=== PATIENT | female | born 1950 | race Caucasian/White ===

== ENCOUNTER 2022-09-21 17:12 | Inpatient (IN) ==
[2022-09-21] MEDS ORDERED: fentaNYL citrate PF 100 MCG/2 ML VIAL IV STA ×2 (17:35→18:06)
[2022-09-21] MEDS ORDERED: SODIUM CHLORIDE 0.9% 1000ML 1,000 ML IV ONE ×2 (17:36→19:05)
[2022-09-21 18:09] LABS: Basophils # (auto) 0.05 K/uL (0-0.2); Basophils % (auto) 0.5 %; Eosinophils # (auto) 0.15 K/uL (0-0.50); Eosinophils % (auto) 1.4 %; Hematocrit (blood only) 44.5 % (37.0-47.0); Hemoglobin 14.9 g/dl (12.0-16.0); Immature Granulocytes # (auto) 0.05 K/uL (0.01-0.20); Immature Granulocytes % (auto) 0.5 %; Lymphocytes # (auto) 2.64 K/uL (1.2-3.4); Lymphocytes % (auto) 25.2 %; Mean Corpuscular Hemoglobin 27.6 pg (25.0-34.0); Mean Corpuscular Hgb Conc 33.5 g/dL (32.0-36.0); Mean Corpuscular Volume 82.6 fL (80.0-100.0); Mean Platelet Volume 9.7 fL (9.4-12.4); Monocytes # (auto) 0.57 K/uL (0.11-0.59); Monocytes % (auto) 5.4 %; Neutrophils # (auto) 7.02 K/uL (1.40-6.50); Platelet Count 258 K/uL (130-400); RDW Coefficient of Variation 14.6 % (11.5-14.5); RDW Standard Deviation 44.3 fL (36.4-46.3); Red Blood Count 5.39 M/uL (4.20-5.40); White Blood Count 10.48 K/ul (4.8-10.8)
[2022-09-21 18:20] LABS: Albumin Globulin Ratio 1.3 (0.9-2); Albumin Level 4.1 gm/dl (3.4-5.0); BUN Creatinine Ratio 22.2 (10-20); Bilirubin,Total 0.4 mg/dl (0.2-1.0); Calcium 9.5 mg/dl (8.6-10.3); Creatinine Clr Calc Pharmacy 82.2 ml/min; Est GFR (African American) 74.6 ml/min; Est GFR (Non-African American) 64.3 ml/min; Globulin 3.1 gm/dl (2.5-4.0); Potassium 3.8 mmol/L (3.5-5.1); Total Protein 7.2 gm/dl (6.0-8.3)
[2022-09-21 18:36] LABS: INR 0.9 (0.9-1.1); Partial Thromboplastin Ratio 0.9; Partial Thromboplastin Time 24.5 Seconds (21.0-31.0); Prothrombin Time 10.3 Seconds (9.0-12.0)
--- NOTE | 2022-09-21 18:47 | Emergency Department Note ---
Impression & Plan Closed fracture of left distal femur, Fall ED Provider Note Provider: Lloyd Howard MD DATE OF SERVICE: 09/21/2022 CHIEF COMPLAINT: Fall, knee pain HISTORY OF PRESENT ILLNESS: Patient is a 72-year-old female history of prediabetes and fibromyalgia presenting here today via ambulance after a fall. Was at home and her daughter fell behind her and the patient was standing and fell onto the back of her. Patient states she fell down onto both of her knees. Reports she had bilateral knee replacements in the past more than a decade ago. States he is having significant pain in the left knee and some pain of the right knee. Denies significant pain in the foot or hip region or elsewhere on the upper extremities or chest. Patient denies striking her head. No use of significant anticoagulants or aspirin reported. Patient does relate she has sensitivity to multiple pain medications. Has been unable to walk since the incident. May be some slight numbness of the left toe but feels gross touch and denies other numbness or tingling. PAST MEDICAL HISTORY: As noted above MEDICATIONS: Reviewed home medication SOCIAL HISTORY: As PHYSICAL EXAM: GENERAL: alert and oriented in supine on stretcher tearful with son at bedside Head: normocephalic and atraumatic EYES: No injection, purulent discharge or icterus. PERRL, EOMI. NECK: Trachea midline. Supple no significant midline cervical tenderness ENT: Mucous membranes pink and moist. LUNGS: Airway patent. No retractions. Breath sounds clear with good air entry bilaterally. HEART: Regular rate and rhythm. No chest wall tenderness ABDOMEN: Soft and non-tender, without guarding or rebound. Stable pelvis SKIN: Acyanotic, warm, dry, without rashes EXTREMITIES: Without swelling, tenderness or deformity of the upper extremities however the lower extremities have significant pain surrounding both knees. The left appears swollen with some contusion just proximal to the knee. No open wounds noted. No significant tenderness of the bilateral lower legs ankles or feet. Feels gross sensation in the feet and toes. NEUROLOGICAL: No aphasia. No facial droop or slurred speech. Normal strength and tone in the extremities. Sensation to gross touch normal. EK bpm sinus rhythm with PAC. No PVC. No acute ST segment elevation or depression with a QTc of 504. Left axis noted. CONTINUOUS CARDIAC MONITORING: was ordered and showed a heart rate of 60s-80s bpm in normal sinus rhythm occasional PACs PDMP was checked without noted issue. Patient's laboratory studies and imaging reviewed. Differential includes Fracture, dislocation, contusion, intra-abdominal, pneumothorax, intrathoracic, intracranial, neurologic, compartment syndrome, rhabdomyolysis, as well as other pathologies. IMPRESSION/MEDICAL DECISION MAKING: Patient presents after a ground-level fall onto the knees bilateral placements in the past. Swelling particularly proximal to the left knee concerning for possible femur fracture. X-rays obtained bilaterally here. No significant strike her head or on her's medications and I doubt a head neck or thoracic abdominal injury. Nexus criteria negative doubt cervical spine injury. Trialed small doses of fentanyl given her sensitivities to narcotics in the past for pain control. No evidence of open wound. Neurologically in tact with good distal capillary refill of the lower extremities. Basic blood work obtained without significant anemia or leukocytosis. Normal INR. Again not on anticoagulants. No significant renal dysfunction or evidence of electrolyte abnormality. 1 view chest x-ray without acute abnormality such as pneumothorax or pulmonary edema per my interpretation Right knee and right femur x-ray per my interpretation no evidence of obvious fracture dislocation with knee arthroplasty in place. Left femur x-ray per my interpretation evidence of a distal femur fracture comminuted just proximal to the knee arthroplasty with posterior displacement of the replacement Patient tolerated first dose of fentanyl well. Given second dose issues along significant pain and developed some episodes of hypotension. Given IV fluid boluses. Doubt significant hemorrhagic shock at this time. Hemoglobin reassuring. Discussed with orthopedics findings. Patient shaky and endorses feeling unwell and still having significant knee pain. Left thigh bruising and contusion no clear skin tenting and no open wound at this time of the left femur/ thigh. Discussed with orthopedic surgery. Given some Toradol and acetaminophen to try to help with her pain. In discussion with them they felt they could likely repair this. We will need to work on pain control. We will t ry some traction to see if this helps with her discomfort discussed with the hospitalist additional strategies as well as possibly trying muscle relaxers to help with spasm component. Updated patient and family at bedside. Hospitalist in agreement with this plan will bring into the hospital at this time for orthopedic care and evaluation DIAGNOSIS: Fall, left femur fracture DISPOSITION: Hospitalist will evaluate Patient was agreeable with this plan. Past Med/Surg History Family History (Updated 09/21/22 @ 21:01 by Kishore Espitia MD) Grandmother (Maternal) Breast cancer Aunt Ovarian cancer Mother Deep vein thrombosis Diabetes Father Leukemia Son Brain tumor Grandfather (Paternal) Myocardial infarction Daughter Multiple sclerosis Social History Smoking Status: Never smoker Hx Alcohol Use: No Hx Substance Use: No Preferred Language: Egyptian Required: No Beliefs That Will Affect Care: None Current Living Situation: Spouse Current Living Situation Comment: Lives at home with Other Information That Helps Us Care for You: No Feels Safe at Home: Yes Safety Concerns: Feels Safe At This Time Allergies Allergies Allergy/AdvReac Type Severity Reaction Status Date / Time hydrocodone Allergy Severe HYPOTENSION Verified 09/21/22 18:21 /SHOCK oxycodone Allergy Severe HYPOTENSION Verified 09/21/22 18:21 /SHOCK Sulfa (Sulfonamide Allergy Severe HIVES IN Verified 09/21/22 18:21 Antibiotics) THROAT, EDEMA OF AIRWAY. adhesive tape Allergy Intermediate SKIN Verified 09/21/22 18:21 TEARS/REDDENED tetanus toxoid, adsorbed Allergy Intermediate RASH/FEVER Verified 09/21/22 18:21 tramadol AdvReac Severe BP DROPPED Verified 09/21/22 18:22 SEVERELY Home Meds Home Medications Medication Instructions Recorded Confirmed albuterol sulfate 90 mcg/actuation 2 puff inhalation Q4H PRN Wheezing 09/21/22 09/21/22 aerosol inhaler amitriptyline 50 mg tablet 50 mg PO HS 09/21/22 09/21/22 budesonide 1 mg/2 mL suspension 1 mg inhalation DAILY PRN 09/21/22 09/21/22 for nebulization (Pulmicort) NEEDED RESPIRATORY ILLNESS calcium carbonate 500 mg-vitamin 1 tab PO DAILY 09/21/22 09/21/22 D3 3.125 mcg (125 unit) tablet cyanocobalamin (vitamin B-12) 1,000 mcg PO DAILY 09/21/22 09/21/22 1,000 mcg tablet (Vitamin B-12) duloxetine 60 mg capsule,delayed 60 mg PO DAILY 09/21/22 09/21/22 release famotidine 20 mg tablet 20 mg PO HS 09/21/22 09/21/22 fluticasone propionate 110 2 puff inhalation BID 09/21/22 09/21/22 mcg/actuation HFA aerosol inhaler (Flovent HFA) fluticasone propionate 50 2 spray intranasal DAILY PRN 09/21/22 09/21/22 mcg/actuation nasal Congestion spray,suspension hydrocortisone 2.5 % topical 1 applic topical DIRECTED PRN 09/21/22 09/21/22 ointment NEEDED magnesium citrate 100 mg capsule 100 mg PO QAM 09/21/22 09/21/22 multivitamin with minerals 1 tab PO DAILY 09/21/22 09/21/22 omeprazole 40 mg capsule,delayed 40 mg PO QAM 09/21/22 09/21/22 release potassium citrate 99 mg capsule 99 mg PO QAM 09/21/22 09/21/22 semaglutide 0.25 mg or 0.5 mg (2 0.5 mg subcut WK 09/21/22 09/21/22 mg/3 mL) subcutaneous pen injector (Variab.[email or web address]) valacyclovir 1 gram tablet 1,000 mg PO Q12H PRN Cold Sores 09/21/22 09/21/22 Results & Data (ED) Vital Signs Vital Signs - 24 hr 09/21/22 17:19 09/21/22 17:24 09/21/22 17:58 Temperature 36.5 C Temperature Source Oral Pulse Rate 82 81 Pulse Rate [Apical] Respiratory Rate 22 Respiratory Effort / Characteristics Non-Labored Respiratory Depth Normal Respiratory Pattern Regular Blood Pressure 112/76 Blood Pressure [Left Arm] Blood Pressure Mean 88 Blood Pressure Mean [Left Arm] Pulse Oximetry 96 96 Oxygen Delivery Method Room Air Room Air Sepsis Recent Fever Within 48 Hours No Sepsis New/Unexplained Change in Mental Status No Sepsis Action Taken by Nursing No Action Required 09/21/22 17:59 09/21/22 19:27 Temperature Temperature Source Pulse Rate Pulse Rate [Apical] 80 80 Respiratory Rate 26 H 24 Respiratory Effort / Characteristics Moaning Moaning Respiratory Depth Deep Deep Respiratory Pattern Regular Regular Blood Pressure Blood Pressure [Left Arm] 123/80 113/83 Blood Pressure Mean Blood Pressure Mean [Left Arm] 94 93 Pulse Oximetry 96 100 Oxygen Delivery Method Room Air Room Air Sepsis Recent Fever Within 48 Hours Sepsis New/Unexplained Change in Mental Status Sepsis Action Taken by Nursing Laboratory Data 09/21/22 17:48 09/21/22 17:48 Lab Results 09/21/22 09/21/22 09/21/22 Range/Units 17:48 17:48 17:48 WBC 10.48 (4.8-10.8) K/ul RBC 5.39 (4.20-5.40) M/uL Hgb 14.9 (12.0-16.0) g/dl Hct 44.5 (37.0-47.0) % MCV 82.6 (80.0-100.0) fL MCH 27.6 (25.0-34.0) pg MCHC 33.5 (32.0-36.0) g/dL RDW Std Deviation 44.3 (36.4-46.3) fL RDW Coeff of Umu 14.6 H (11.5-14.5) % Plt Count 258 (130-400) K/uL MPV 9.7 (9.4-12.4) fL Immature Gran % (Auto) 0.5 % Neut % (Auto) 67.0 % Lymph % (Auto) 25.2 % Lyman % (Auto) 5.4 % Eos % (Auto) 1.4 % Baso % (Auto) 0.5 % Neut # (Auto) 7.02 H (1.40-6.50) K/uL Lymph # (Auto) 2.64 (1.2-3.4) K/uL Lyman # (Auto) 0.57 (0.11-0.59) K/uL Eos # (Auto) 0.15 (0-0.50) K/uL Baso # (Auto) 0.05 (0-0.2) K/uL Immature Gran # (Auto) 0.05 (0.01-0.20) K/uL PT 10.3 (9.0-12.0) Seconds INR 0.9 (0.9-1.1) APTT 24.5 (21.0-31.0) Seconds PTT Ratio 0.9 Sodium (136-145) mmol/L Potassium (3.5-5.1) mmol/L Chloride (98-107) mmol/L Carbon Dioxide (21-32) mmol/L Anion Gap (3-11) BUN (6-23) mg/dl Creatinine (0.6-1.2) mg/dl Est Cr Clr Drug Dosing ml/min Est GFR ( Amer) ml/min Est GFR (Non-Af Amer) ml/min BUN/Creatinine Ratio (10-20) Glucose (70-99(Fasting)) mg/dl Calcium (8.6-10.3) mg/dl Total Bilirubin (0.2-1.0) mg/dl AST (13-39) U/L ALT (7-52) U/L Alkaline Phosphatase (34-104) U/L Total Protein (6.0-8.3) gm/dl Albumin (3.4-5.0) gm/dl Globulin (2.5-4.0) gm/dl Albumin/Globulin Ratio (0.9-2) SARS-CoV-2, RNA, NAAT (NEGATIVE) Blood Type A Positive Antibody Screen NEGATIVE 09/21/22 09/21/22 Range/Units 17:48 19:10 WBC (4.8-10.8) K/ul RBC (4.20-5.40) M/uL Hgb (12.0-16.0) g/dl Hct (37.0-47.0) % MCV (80.0-100.0) fL MCH (25.0-34.0) pg MCHC (32.0-36.0) g/dL RDW Std Deviation (36.4-46.3) fL RDW Coeff of Umu (11.5-14.5) % Plt Count (130-400) K/uL MPV (9.4-12.4) fL Immature Gran % (Auto) % Neut % (Auto) % Lymph % (Auto) % Lyman % (Auto) % Eos % (Auto) % Baso % (Auto) % Neut # (Auto) (1.40-6.50) K/uL Lymph # (Auto) (1.2-3.4) K/uL Lyman # (Auto) (0.11-0.59) K/uL Eos # (Auto) (0-0.50) K/uL Baso # (Auto) (0-0.2) K/uL Immature Gran # (Auto) (0.01-0.20) K/uL PT (9.0-12.0) Seconds INR (0.9-1.1) APTT (21.0-31.0) Seconds PTT Ratio Sodium 138 (136-145) mmol/L Potassium 3.8 (3.5-5.1) mmol/L Chloride 104 (98-107) mmol/L Carbon Dioxide 21 (21-32) mmol/L Anion Gap 13 H (3-11) BUN 20 (6-23) mg/dl Creatinine 0.90 (0.6-1.2) mg/dl Est Cr Clr Drug Dosing 82.2 ml/min Est GFR ( Amer) 74.6 ml/min Est GFR (Non-Af Amer) 64.3 ml/min BUN/Creatinine Ratio 22.2 H (10-20) Glucose 142 H (70-99(Fasting)) mg/dl Calcium 9.5 (8.6-10.3) mg/dl Total Bilirubin 0.4 (0.2-1.0) mg/dl AST 19 (13-39) U/L ALT 14 (7-52) U/L Alkaline Phosphatase 82 (34-104) U/L Total Protein 7.2 (6.0-8.3) gm/dl Albumin 4.1 (3.4-5.0) gm/dl Globulin 3.1 (2.5-4.0) gm/dl Albumin/Globulin Ratio 1.3 (0.9-2) SARS-CoV-2, RNA, NAAT NEGATIVE (NEGATIVE) Blood Type Antibody Screen Administered Medications Sodium Chloride (Nss 1000ml) 1,000 mls @ 80 mls/hr IV .[id number] ELAINE Stop: 10/21/22 22:37 Last Admin: 09/21/22 23:16 Dose: 80 mls/hr Documented By: DMM Discontinued Medications Fentanyl Citrate (Fentanyl Citrate Pf 100 Mcg/2 Ml Vial) 50 mcg IV NOW STA Stop: 09/21/22 17:36 Last Admin: 09/21/22 17:48 Dose: 50 mcg Documented By: Fentanyl Citrate (Fentanyl Citrate Pf 100 Mcg/2 Ml Vial) 50 mcg IV NOW STA Stop: 09/21/22 18:07 Last Admin: 09/21/22 18:10 Dose: 50 mcg Documented By: Sodium Chloride (Nss 1000ml) 1,000 mls @ 999 mls/hr IV .Q1H1M ONE Stop: 09/21/22 18:36 Last Infusion: 09/21/22 18:56 Dose: 0 mls/hr Documented By: Admin: 09/21/22 17:52 Dose: 999 mls/hr Documented By: Sodium Chloride (Nss 1000ml) 1,000 mls @ 999 mls/hr IV .Q1H1M ONE Stop: 09/21/22 20:05 Last Infusion: 09/21/22 20:14 Dose: 0 mls/hr Documented By: Admin: 09/21/22 19:07 Dose: 999 mls/hr Documented By: Acetaminophen (Ofirmev) 1,000 mg in 100 mls @ 400 mls/hr IV NOW STA Stop: 09/21/22 19:51 Last Infusion: 09/21/22 20:36 Dose: 0 mls/hr Documented By: Admin: 09/21/22 20:20 Dose: 400 mls/hr Documented By: Famotidine (Pepcid 20mg Iv Push) 20 mg in 5 mls @ 2.5 mls/min IV NOW STA Stop: 09/21/22 20:56 Last Admin: 09/21/22 20:59 Dose: 2.5 mls/min Documented By: ML Ketorolac Tromethamine (Ketorolac Tromethamine 15 Mg/Ml Vial) 15 mg IV NOW STA Stop: 09/21/22 19:38 Last Admin: 09/21/22 20:20 Dose: 15 mg Documented By: Ondansetron HCl (Ondansetron Inj 2 Mg/Ml 2 Ml Vial) 4 mg IV NOW STA Stop: 09/21/22 21:16 Last Admin: 09/21/22 21:18 Dose: 4 mg Documented By: ML Imaging Data Radiologist's Impression: Chest X-Ray 09/21/22 17:34 XR chest 1V portable HISTORY: 72 years-old Female fall acute chest trauma status post fall COMPARISON: None TECHNIQUE: AP view the chest FINDINGS: Cardiomediastinal and hilar silhouettes are within normal limits. Mild interstitial coarsening is likely chronic. No pneumothorax, pleural effusion, airspace consolidation or pulmonary edema. Chronic appearing deformity of the distal left clavicle. Spondylotic spurring of the spine. IMPRESSION: No acute process. ACT 112: Negative or not required by law. The above report was generated using voice recognition software. It may contain grammatical, syntax or spelling errors. Electronically signed by: Xavi Owens M.D. 09/21/2022 7:13 PM Femur X-Ray 09/21/22 17:34 XR femur LT 2V routine HISTORY: 72 years-old Female fall acute left knee pain status post fall COMPARISON: None TECHNIQUE: 2 views of the left femur FINDINGS: Mild osteoarthritis of the left hip. Total joint arthroplasty with patellar surfacing of the knee. There is an acute and comminuted distal femoral fracture which demonstrates apex lateral angulation with 4.8 cm dorsal displacement and a few centimeters of foreshortening/apposition. Questioned cortical irregularity of the posterior cortex of the proximal tibia. Moderate lateral prominent soft tissue swelling. IMPRESSION: 1. Acute, comminuted, angulated, displaced and foreshortened periprosthetic fracture of the distal femur. 2. Questioned cortical irregularity of the posterior cortex of the proximal tibia is likely artifactual. A subtle acute nondisplaced fracture considered less likely. ACT 112: Negative or not required by law. The above report was generated using voice recognition software. It may contain grammatical, syntax or spelling errors. Electronically signed by: Xavi Owens M.D. 09/21/2022 7:24 PM Femur X-Ray 09/21/22 17:34 XR femur RT 2V routine, XR knee RT 3V HISTORY: 72 years-old Female fall acute partially right lower extremity status post fall COMPARISON: None TECHNIQUE: 2 views of the right femur with 3 views of the right knee FINDINGS: FEMUR: [id number] osteoarthritis of the femoral acetabular joint. No acute fracture, dislocation or opaque foreign body. KNEE: Total joint arthroplasty without evidence of hardware complication. Small joint effusion. No acute fracture or dislocation identified. IMPRESSION: No acute fracture or dislocation. ACT 112: Negative or not required by law. The above report was generated using voice recognition software. It may contain grammatical, syntax or spelling errors. Electronically signed by: Xavi Owens M.D. 09/21/2022 7:15 PM Knee X-Ray 09/21/22 17:34 XR femur RT 2V routine, XR knee RT 3V HISTORY: 72 years-old Female fall acute partially right lower extremity status post fall COMPARISON: None TECHNIQUE: 2 views of the right femur with 3 views of the right knee FINDINGS: FEMUR: [id number] osteoarthritis of the femoral acetabular joint. No acute fracture, dislocation or opaque foreign body. KNEE: Total joint arthroplasty without evidence of hardware complication. Small joint effusion. No acute fracture or dislocation identified. IMPRESSION: No acute fracture or dislocation. ACT 112: Negative or not required by law. The above report was generated using voice recognition software. It may contain grammatical, syntax or spelling errors. Electronically signed by: Xavi Owens M.D. 09/21/2022 7:15 PM Discharge Plan Visit Data Chief Complaint: Fall Stated Complaint: FALL, LEG PAIN ED Provider: Lloyd Howard Discharge Problem: Closed fracture of left distal femur, Fall Patient Disposition: Admitted As Inpatient Discharge Instructions Interventions: ED Discharge Assessment Last Done: 09/21/22 21:40
--- NOTE | 2022-09-21 19:15 | XRay Report ---
XR chest 1V portable HISTORY: 72 years-old Female fall acute chest trauma status post fall COMPARISON: None TECHNIQUE: AP view the chest FINDINGS: Cardiomediastinal and hilar silhouettes are within normal limits. Mild interstitial coarsening is lik marco antonio chronic. No pneumothorax, pleural effusion, airspace consolidation or pulmonary edema. Chronic ap pearing deformity of the distal left clavicle. Spondylotic spurring of the spine. IMPRESSION: No acute process. ACT 112: Negative or not required by law. The above report was generated using voice recognition software. It may contain grammatical, syntax o r spelling errors. Electronically signed by: Xavi Owens M.D. 09/21/2022 7:13 PM
--- NOTE | 2022-09-21 19:17 | XRay Report ---
XR femur RT 2V routine, XR knee RT 3V HISTORY: 72 years-old Female fall acute partially right lower extremity status post fall COMPARISON: None TECHNIQUE: 2 views of the right femur with 3 views of the right knee FINDINGS: FEMUR: [id number] osteoarthritis of the femoral acetabular joint. No acute fracture, dislocation or op aque foreign body. KNEE: Total joint arthroplasty without evidence of hardware complication. Small joint effusion. No acute fr acture or dislocation identified. IMPRESSION: No acute fracture or dislocation. ACT 112: Negative or not required by law. The above report was generated using voice recognition software. It may contain grammatical, syntax o r spelling errors. Electronically signed by: Xavi Owens M.D. 09/21/2022 7:15 PM
--- NOTE | 2022-09-21 19:26 | XRay Report ---
XR femur LT 2V routine HISTORY: 72 years-old Female fall acute left knee pain status post fall COMPARISON: None TECHNIQUE: 2 views of the left femur FINDINGS: Mild osteoarthritis of the left hip. Total joint arthroplasty with patellar surfacing of the knee. Th ere is an acute and comminuted distal femoral fracture which demonstrates apex lateral angulation wit h 4.8 cm dorsal displacement and a few centimeters of foreshortening/apposition. Questioned cortical irregularity of the posterior cortex of the proximal tibia. Moderate lateral prominent soft tissue sw elling. IMPRESSION: 1. Acute, comminuted, angulated, displaced and foreshortened periprosthetic fracture of the distal fe mur. 2. Questioned cortical irregularity of the posterior cortex of the proximal tibia is likely artifactu al. A subtle acute nondisplaced fracture considered less likely. ACT 112: Negative or not required by law. The above report was generated using voice recognition software. It may contain grammatical, syntax o r spelling errors. Electronically signed by: Xavi Owens M.D. 09/21/2022 7:24 PM
[2022-09-21] MEDS ORDERED: KETOROLAC TROMETHAMINE 15 MG/ML VIAL IV STA (19:37)
[2022-09-21] MEDS ORDERED: ACETAMINOPHEN 1,000 MG/100 ML VIAL IV STA (19:37)
[2022-09-21] MEDS ORDERED: FAMOTIDINE 20MG IV PUSH 20 MG/5 ML SYR IV STA (20:55)
--- NOTE | 2022-09-21 21:07 | History & Physical Report ---
Date of Service September 21, 2022 Assessment & Plan (1) Fall: Plan: 72-year-old female with past medical history of prediabetes, moderate persistent asthma, sleep apnea, varicose veins of both legs with edema, post gastric surgery syndrome, GERD, morbid obesity, fibromyalgia, depression, presents with mechanical fall and left distal femur fracture. Patient ambulatory status okay prior to the fall. Says does not use any oxygen at home. EKG chest x-ray and labs are okay. Currently hemodynamically stable. Patient should be at acceptable risk to proceed with with surgery. Pain control IV Tylenol as needed and IV Toradol as needed. Narcotics cause hypotension. Close monitor for pain control. If needed will consult pain management. Monitor on telemetry for now. Ortho notified by ER.. Plans for Castro traction. Prediabetes On Ozempic which which will be held. Insulin sliding scale We will check HbA1c levels Will monitor blood sugars. Moderate persistent asthma without complications Currently stable We will continue home inhalers. Morbid obesity Sleep apnea Will monitor respiratory status. Fibromyalgia Depression Continue home amitriptyline and duloxetine GERD Continue omeprazole Prolonged QTc of 504 To avoid QT prolonging drugs Follow repeat EKG in a.m. DVT prophylaxis Cannot place on SCDs because of femur fracture Cannot place on anticoagulation in anticipation of surgery Further anticoagulation as per orthopedics. Disposition Monitor on telemetry floor. (2) Closed fracture of left distal femur: History of Present Illness Chief Complaint: Fall and left distal femur fracture Primary Care Provider: Evie Lowery DO This is a 72-year-old female with past medical history significant for prediabetes moderate persistent asthma, sleep apnea, varicose veins of both legs with edema, post gastric surgery syndrome, GERD, morbid obesity, female stress incontinence, fibromyalgia, osteoarthritis of knees, age-related osteoporosis, adjustment disorder with depressed mood comes from home with fall. Patient's family member fell back on the patient's legs which which made patient fall down. Patient's family in the room. As per family and the patient,she did not hit her head and did not lose consciousness. Have a lot of pain in the left lower extremity and back. Imaging studies in the ER showed distal left femur fracture. Patient is allergic to narcotics which cause hypotension. After recent couple of dose of fentanyl in the ER patient blood pressure dropped but improved with fluids. Currently patient received IV Tylenol and IV Toradol for pain control. Still has some pain. Has some nausea. Denies any headaches, no blurred vision, no runny nose, no cough, no recent fevers, no chest pain or shortness of breath. No abdominal pain. Normal bowel and bladder movements. Hemodynamically stable. Past medical history as mentioned above. Past surgical history left knee replacement, right knee total arthroplasty, right breast lesion excision which was benign, colonoscopy, EGD, incision of tendon sheath, left rotator cuff surgery, right knee arthroscopy, laparoscopic procedure of liver, laparoscopic cholecystectomy, tonsillectomy and adenoidectomy, sleeve gastrectomy laparoscopic, left knee surgery for torn cartilage. Allergies Allergy/AdvReac Type Severity Reaction Status Date / Time hydrocodone Allergy Severe HYPOTENSION Verified 09/21/22 18:21 /SHOCK oxycodone Allergy Severe HYPOTENSION Verified 09/21/22 18:21 /SHOCK Sulfa (Sulfonamide Allergy Severe HIVES IN Verified 09/21/22 18:21 Antibiotics) THROAT, EDEMA OF AIRWAY. adhesive tape Allergy Intermediate SKIN Verified 09/21/22 18:21 TEARS/REDDENED tetanus toxoid, adsorbed Allergy Intermediate RASH/FEVER Verified 09/21/22 18:21 tramadol AdvReac Severe BP DROPPED Verified 09/21/22 18:22 SEVERELY Home Medications Medication Instructions Recorded Confirmed Type albuterol sulfate 90 mcg/actuation 2 puff inhalation Q4H PRN Wheezing 09/21/22 09/21/22 History aerosol inhaler amitriptyline 50 mg tablet 50 mg PO HS 09/21/22 09/21/22 History budesonide 1 mg/2 mL suspension 1 mg inhalation DAILY PRN 09/21/22 09/21/22 History for nebulization (Pulmicort) NEEDED RESPIRATORY ILLNESS calcium carbonate 500 mg-vitamin 1 tab PO DAILY 09/21/22 09/21/22 History D3 3.125 mcg (125 unit) tablet cyanocobalamin (vitamin B-12) 1,000 mcg PO DAILY 09/21/22 09/21/22 History 1,000 mcg tablet (Vitamin B-12) duloxetine 60 mg capsule,delayed 60 mg PO DAILY 09/21/22 09/21/22 History release famotidine 20 mg tablet 20 mg PO HS 09/21/22 09/21/22 History fluticasone propionate 110 2 puff inhalation BID 09/21/22 09/21/22 History mcg/actuation HFA aerosol inhaler (Flovent HFA) fluticasone propionate 50 2 spray intranasal DAILY PRN 09/21/22 09/21/22 History mcg/actuation nasal Congestion spray,suspension hydrocortisone 2.5 % topical 1 applic topical DIRECTED PRN 09/21/22 09/21/22 History ointment NEEDED magnesium citrate 100 mg capsule 100 mg PO QAM 09/21/22 09/21/22 History multivitamin with minerals 1 tab PO DAILY 09/21/22 09/21/22 History omeprazole 40 mg capsule,delayed 40 mg PO QAM 09/21/22 09/21/22 History release potassium citrate 99 mg capsule 99 mg PO QAM 09/21/22 09/21/22 History semaglutide 0.25 mg or 0.5 mg (2 0.5 mg subcut WK 09/21/22 09/21/22 History mg/3 mL) subcutaneous pen injector (Ozempic) valacyclovir 1 gram tablet 1,000 mg PO Q12H PRN Cold Sores 09/21/22 09/21/22 History Past Med/Surg History Family History (Updated 09/21/22 @ 21:01 by Kishore Espitia MD) Grandmother (Maternal) Breast cancer Aunt Ovarian cancer Mother Deep vein thrombosis Diabetes Father Leukemia Son Brain tumor Grandfather (Paternal) Myocardial infarction Daughter Multiple sclerosis Social History Smoking Status: Never smoker Feels Safe at Home: Yes Review of Systems Review of Systems: All systems reviewed & are unremarkable except as noted in Subjective Physical Exam Physical Exam: NEEDS EDITING General- adult Head- atraumatic Eyes- PERRL, ENT- oropharynx clear no adenopathy, no thyromegaly; carotids +2/2, no bruits appreciated Lungs- clear to auscultation and percussion Heart- regular rhythm; no murmur, no gallop, no rub appreciated Abdomen- normal bowel sounds, soft, nontender, no masses or hepatosplenomegaly Extremities- mild pretibial edema, Left lower extremity shortened and external ly rotated Neuro- alert, oriented x 3; no facial palsy; no dysarthria;insight ok, obeys commands Skin- warm & dry Results & Data Results & Data Vital Signs (Past 12 Hours) Vital Signs Temp Pulse Pulse Resp BP BP Pulse Ox 09/21/22 19:27 80 24 113/83 100 09/21/22 17:59 80 26 H 123/80 96 09/21/22 17:58 96 09/21/22 17:24 81 09/21/22 17:19 36.5 C 82 22 112/76 96 O2 Del Method 09/21/22 19:27 Room Air 09/21/22 17:59 Room Air 09/21/22 17:58 Room Air 09/21/22 17:24 09/21/22 17:19 Room Air Diagnostic Findings Laboratory Results WBC 10.48 K/ul (4.8-10.8) 09/21/22 17:48 RBC 5.39 M/uL (4.20-5.40) 09/21/22 17:48 Hgb 14.9 g/dl (12.0-16.0) 09/21/22 17:48 Hct 44.5 % (37.0-47.0) 09/21/22 17:48 MCV 82.6 fL (80.0-100.0) 09/21/22 17:48 MCH 27.6 pg (25.0-34.0) 09/21/22 17:48 MCHC 33.5 g/dL (32.0-36.0) 09/21/22 17:48 RDW Std Deviation 44.3 fL (36.4-46.3) 09/21/22 17:48 RDW Coeff of Umu 14.6 % (11.5-14.5) H 09/21/22 17:48 Plt Count 258 K/uL (130-400) 09/21/22 17:48 MPV 9.7 fL (9.4-12.4) 09/21/22 17:48 Immature Gran % (Auto) 0.5 % 09/21/22 17:48 Neut % (Auto) 67.0 % 09/21/22 17:48 Lymph % (Auto) 25.2 % 09/21/22 17:48 [place] % (Auto) 5.4 % 09/21/22 17:48 Eos % (Auto) 1.4 % 09/21/22 17:48 Baso % (Auto) 0.5 % 09/21/22 17:48 Neut # (Auto) 7.02 K/uL (1.40-6.50) H 09/21/22 17:48 Lymph # (Auto) 2.64 K/uL (1.2-3.4) 09/21/22 17:48 [place] # (Auto) 0.57 K/uL (0.11-0.59) 09/21/22 17:48 Eos # (Auto) 0.15 K/uL (0-0.50) 09/21/22 17:48 Baso # (Auto) 0.05 K/uL (0-0.2) 09/21/22 17:48 Immature Gran # (Auto) 0.05 K/uL (0.01-0.20) 09/21/22 17:48 PT 10.3 Seconds (9.0-12.0) 09/21/22 17:48 INR 0.9 (0.9-1.1) 09/21/22 17:48 APTT 24.5 Seconds (21.0-31.0) 09/21/22 17:48 PTT Ratio 0.9 09/21/22 17:48 Sodium 138 mmol/L (136-145) 09/21/22 17:48 Potassium 3.8 mmol/L (3.5-5.1) 09/21/22 17:48 Chloride 104 mmol/L (98-107) 09/21/22 17:48 Carbon Dioxide 21 mmol/L (21-32) 09/21/22 17:48 Anion Gap 13 (3-11) H 09/21/22 17:48 BUN 20 mg/dl (6-23) 09/21/22 17:48 Creatinine 0.90 mg/dl (0.6-1.2) 09/21/22 17:48 Est Cr Clr Drug Dosing 82.2 ml/min 09/21/22 17:48 Est GFR ( Amer) 74.6 ml/min 09/21/22 17:48 Est GFR (Non-Af Amer) 64.3 ml/min 09/21/22 17:48 BUN/Creatinine Ratio 22.2 (10-20) H 09/21/22 17:48 Glucose 142 mg/dl (70-99(Fasting)) H 09/21/22 17:48 Calcium 9.5 mg/dl (8.6-10.3) 09/21/22 17:48 Total Bilirubin 0.4 mg/dl (0.2-1.0) 09/21/22 17:48 AST 19 U/L (13-39) 09/21/22 17:48 ALT 14 U/L (7-52) 09/21/22 17:48 Alkaline Phosphatase 82 U/L (34-104) 09/21/22 17:48 Total Protein 7.2 gm/dl (6.0-8.3) 09/21/22 17:48 Albumin 4.1 gm/dl (3.4-5.0) 09/21/22 17:48 Globulin 3.1 gm/dl (2.5-4.0) 09/21/22 17:48 Albumin/Globulin Ratio 1.3 (0.9-2) 09/21/22 17:48 SARS-CoV-2, RNA, NAAT NEGATIVE (NEGATIVE) 09/21/22 19:10 Blood Type A Positive 09/21/22 17:48 Antibody Screen NEGATIVE 09/21/22 17:48 Impressions Chest X-Ray 09/21/22 17:34 XR chest 1V portable HISTORY: 72 years-old Female fall acute chest trauma status post fall COMPARISON: None TECHNIQUE: AP view the chest FINDINGS: Cardiomediastinal and hilar silhouettes are within normal limits. Mild interstitial coarsening is likely chronic. No pneumothorax, pleural effusion, airspace consolidation or pulmonary edema. Chronic appearing deformity of the distal left clavicle. Spondylotic spurring of the spine. IMPRESSION: No acute process. ACT 112: Negative or not required by law. The above report was generated using voice recognition software. It may contain grammatical, syntax or spelling errors. Electronically signed by: Xavi Owens M.D. 09/21/2022 7:13 PM Femur X-Ray 09/21/22 17:34 XR femur LT 2V routine HISTORY: 72 years-old Female fall acute left knee pain status post fall COMPARISON: None TECHNIQUE: 2 views of the left femur FINDINGS: Mild osteoarthritis of the left hip. Total joint arthroplasty with patellar surfacing of the knee. There is an acute and comminuted distal femoral fracture which demonstrates apex lateral angulation with 4.8 cm dorsal displacement and a few centimeters of foreshortening/apposition. Questioned cortical irregularity of the posterior cortex of the proximal tibia. Moderate lateral prominent soft tissue swelling. IMPRESSION: 1. Acute, comminuted, angulated, displaced and foreshortened periprosthetic fracture of the distal femur. 2. Questioned cortical irregularity of the posterior cortex of the proximal tibia is likely artifactual. A subtle acute nondisplaced fracture considered less likely. ACT 112: Negative or not required by law. The above report was generated using voice recognition software. It may contain grammatical, syntax or spelling errors. Electronically signed by: Xavi Owens M.D. 09/21/2022 7:24 PM Knee X-Ray 09/21/22 17:34 XR femur RT 2V routine, XR knee RT 3V HISTORY: 72 years-old Female fall acute partially right lower extremity status post fall COMPARISON: None TECHNIQUE: 2 views of the right femur with 3 views of the right knee FINDINGS: FEMUR: [id number] osteoarthritis of the femoral acetabular joint. No acute fracture, dislocation or opaque foreign body. KNEE: Total joint arthroplasty without evidence of hardware complication. Small joint effusion. No acute fracture or dislocation identified. IMPRESSION: No acute fracture or dislocation. ACT 112: Negative or not required by law. The above report was generated using voice recognition software. It may contain grammatical, syntax or spelling errors. Electronically signed by: Xavi Owens M.D. 09/21/2022 7:15 PM ECG Additional Comments: ECG sinus rhythm with PACs at a rate of 81. Left axis deviation. QTc of 504. Code Status & VTE Plan VTE Prophylaxis Plan VTE Prophylaxis will be ordered: Yes
[2022-09-21] MEDS ORDERED: ONDANSETRON INJ 2 MG/ML 2 ML VIAL IV STA (21:15)
[2022-09-21] MEDS ORDERED: DEXTROSE 50% 50 ML SYRINGE IV PRN (22:38)
[2022-09-21] MEDS ORDERED: ALBUTEROL HFA 8 GM INHALER INH PRN (22:38)
[2022-09-21] MEDS ORDERED: GLUCAGON FOR INJ 1 MG VIAL SQ PRN (22:38)
[2022-09-21] MEDS ORDERED: FLUTICASONE PROPIONATE NA SPR 16 GM BTL PRN (22:38)
[2022-09-21] MEDS ORDERED: CARBOHYDRATES FOR HYPOGLYCEMIA PO PRN (22:38)
[2022-09-21] MEDS ORDERED: FAMOTIDINE 20 MG TAB PO SCH (22:38)
[2022-09-21] MEDS ORDERED: NITROGLYCERIN SL 0.4 MG/TAB TAB SL PRN (22:38)
[2022-09-21] MEDS ORDERED: AMITRIPTYLINE HCL 50 MG TAB PO SCH (22:38)
[2022-09-21] MEDS ORDERED: GLUCOSE 10 TAB/TUBE PO PRN (22:38)
[2022-09-21] MEDS ORDERED: BUDESONIDE 0.5 MG/2 ML VIAL (PULMICORT) INH PRN (22:38)
[2022-09-21] MEDS ORDERED: KETOROLAC TROMETHAMINE 15 MG/ML VIAL IV PRN (22:38)
[2022-09-21] MEDS ORDERED: GLUCOSE 40% GEL 15 GM TUBE PO PRN (22:38)
[2022-09-21] MEDS: SODIUM CHLORIDE 0.9% 1000ML 1,000 ML IV SCH (23:16)
[2022-09-21] MEDS ORDERED: KETAMINE HCL 10 MG in SODIUM CHLORIDE 0.9% 50 ML IV PRN (23:56)
--- NOTE | 2022-09-22 00:07 | Critical Care Consultation ---
Date of Consultation September 22, 2022 Assessment & Plan (1) Closed fracture of left distal femur: (2) Acute pain: (3) Diabetes mellitus, type II: (4) Adjustment disorder: (5) GERD (gastroesophageal reflux disease): (6) Asthma: Plan Reason Critically Ill: Patient transferred to ICU for acute pain control in the setting of displaced periprosthetic fracture of distal femur and intolerance/hypotension related to narcotics. Neuro - Acute pain, Adjustment disorder with anxiety/depression CAM ICU: Negative - For her Acute pain- continue with Tylenol, will give one more dose of Toradol if needed- then hold. - Ketamine 0.1mg/kg will be used for severe pain- ICU protocol for vitals, EtCO2 monitoring - Valium if needed for muscle spasms or if dissociation occurs - Patient declined nerve block at this time Adjustment disorder - continue with Amitriptyline, Duloxetine, Cardiac - PAf - Patient reports history of ? afib that was short lived, but more she describes this sounds more like anxiety, as she reports that it calms down when she relaxes - she is not on anticoagulation or rate control agents - Currently sinus rythm Respiratory - Asthma - Patient reports well controlled with infrequent use of her Albuterol - Continue with MISBAH PRN and ICS daily- no PFTS available for review GI - Gastric bypass, GERD - Continue with PPI RENAL/LYTES - No acute needs - Anderson to gravity ENDO - DMII - NPO after midnight- BG q 6 hours - She is on Ozempic at home HEME - No acute needs - Patient Type and Screened ID - No acute needs LINES/IV ACCESS - PIV/Anderson Continue use of these lines DVT PROPHYLAXIS - SCDs and TEDS to non-affected leg DISPO- ICU for acute pain control I have personally spent 50 minutes of critical care time in the direct management of this patient. This is a life/limb threatening event. This includes time spent evaluating patient, direct bedside care, chart review, placing orders, interpretation of diagnostic studies, discussion with consultants, patient, and family members, as well as other required patient management activities. This time is exclusive of all separately billable procedures, and separate from and in addition to any other critical care service time. Thank you for allowing us to participate in the care of this patient. Please refer to my attending physician's documentation for any further recommendations. History of Present Illness Reason for Consultation: pain control Requesting Physician: Kishore Espitia Attending Physician: Kishore Espitia MD History of Present Illness 72 YOF with medical history of: Depression/anxiety with adjustment disorder, obesity, DM II, asthma, GERD, Left knee replacement, PAF. Patient transferred to ICU for acute pain control in the setting of displaced periprosthetic fracture of distal femur and intolerance/hypotension related to narcotics. Patient reports that she was outside, her daughter fell into her, nd hit her in the back of her leg and she fell down on both knees and then went backwards. She could not get up by herself and EMs was called. The patient was given a dose of Fentanyl for pain control in the EMD and resulted with Hypotension that was resolved with administering IVF. She was placed in a splint and traction of 10lbs, following traction her pain got acutely worse she was given IV Tylenol and Toradol and ICU was consulted for Ketamine administration for pain. Acute Pain Service consulted by admitting team as well with recommendation for low dose ketamine for acute pain. Patient was evaluated in her room at 221 prior to transfer, she is awake and alert, she feels that her pain is now manageable and not as bad as before. She reports that when she had her knee done originally she reports what sounds like an PCEA epidural and after one dose she remembers everyone coming, pulling her catheter out of her back and given her other medications and iv fluids. She reports trying other narcotics after that as well; and had hypotension. She believes that rubin when she went to rehab they may have used Ultram and Tylenol with her. She is unsure of any other pain adjuvants like lidocaine patches or Voltaren use. She is also unsure if she has had any issues with muscle relaxants or benzodiazepines. Patient was evaluated by Anesthesia on arrival and offered a nerve block, which she acutely declined as she feels comfortable. Patient is FULL CODE Allergies Allergy/AdvReac Type Severity Reaction Status Date / Time hydrocodone Allergy Severe HYPOTENSION Verified 09/21/22 18:21 /SHOCK oxycodone Allergy Severe HYPOTENSION Verified 09/21/22 18:21 /SHOCK Sulfa (Sulfonamide Allergy Severe HIVES IN Verified 09/21/22 18:21 Antibiotics) THROAT, EDEMA OF AIRWAY. adhesive tape Allergy Intermediate SKIN Verified 09/21/22 18:21 TEARS/REDDENED tetanus toxoid, adsorbed Allergy Intermediate RASH/FEVER Verified 09/21/22 18:21 tramadol AdvReac Severe BP DROPPED Verified 09/21/22 18:22 SEVERELY Home Medications Medication Instructions Recorded Confirmed Type albuterol sulfate 90 mcg/actuation 2 puff inhalation Q4H PRN Wheezing 09/21/22 09/21/22 History aerosol inhaler amitriptyline 50 mg tablet 50 mg PO HS 09/21/22 09/21/22 History budesonide 1 mg/2 mL suspension 1 mg inhalation DAILY PRN 09/21/22 09/21/22 History for nebulization (Pulmicort) NEEDED RESPIRATORY ILLNESS calcium carbonate 500 mg-vitamin 1 tab PO DAILY 09/21/22 09/21/22 History D3 3.125 mcg (125 unit) tablet cyanocobalamin (vitamin B-12) 1,000 mcg PO DAILY 09/21/22 09/21/22 History 1,000 mcg tablet (Vitamin B-12) duloxetine 60 mg capsule,delayed 60 mg PO DAILY 09/21/22 09/21/22 History release famotidine 20 mg tablet 20 mg PO HS 09/21/22 09/21/22 History fluticasone propionate 110 2 puff inhalation BID 09/21/22 09/21/22 History mcg/actuation HFA aerosol inhaler (Flovent HFA) fluticasone propionate 50 2 spray intranasal DAILY PRN 09/21/22 09/21/22 History mcg/actuation nasal Congestion spray,suspension hydrocortisone 2.5 % topical 1 applic topical DIRECTED PRN 09/21/22 09/21/22 History ointment NEEDED magnesium citrate 100 mg capsule 100 mg PO QAM 09/21/22 09/21/22 History multivitamin with minerals 1 tab PO DAILY 09/21/22 09/21/22 History omeprazole 40 mg capsule,delayed 40 mg PO QAM 09/21/22 09/21/22 History release potassium citrate 99 mg capsule 99 mg PO QAM 09/21/22 09/21/22 History semaglutide 0.25 mg or 0.5 mg (2 0.5 mg subcut WK 09/21/22 09/21/22 History mg/3 mL) subcutaneous pen injector (Ozempic) valacyclovir 1 gram tablet 1,000 mg PO Q12H PRN Cold Sores 09/21/22 09/21/22 History Patient History Medical History Adjustment disorder Asthma Diabetes mellitus, type II GERD (gastroesophageal reflux disease) Obesity (BMI 30-39.9) Osteoarthritis Surgical History H/O gastric bypass H/O total knee replacement Family History Grandmother (Maternal) Breast cancer Aunt Ovarian cancer Mother Deep vein thrombosis Diabetes Father Leukemia Son Brain tumor Grandfather (Paternal) Myocardial infarction Daughter Multiple sclerosis Social History Smoking Status: Never smoker Hx Alcohol Use: No Hx Substance Use: No Preferred Language: Persian Closing Coordinator Required: No Beliefs That Will Affect Care: None Current Living Situation: Spouse Current Living Situation Comment: Lives at home with Other Information That Helps Us Care for You: No Feels Safe at Home: Yes Safety Concerns: Feels Safe At This Time Review of Systems Review of Systems: REVIEW OF SYSTEMS: Constitutional: No fever, sweats or chills Eyes: No diplopia, no worsening or blurred vision ENT: normal hearing, no trouble swallowing Respiratory: (+) asthma,No cough, sputum, dyspnea at rest or on exertion Cardiovascular: (+) palpitations- has not occurred in years, No chest pain, tightness or palpitations Abdomen: No pain, nausea, vomiting, diarrhea or constipation Musculoskeletal: (+) left leg pain, Neurologic: No weakness, numbness/tingling, or balance problems Psychiatric: (+) anxiety/depression, Skin: No rash or itch Physical Exam Physical Exam: PHYSICAL EXAM: General: awake, alert, no apparent distress Head: Normocephalic, atraumatic ENT: PERRL, EOMI, no pharyngeal exudate, mucous membranes moist Neuro: AAO x 3, speech clear and appropriate, strength intact bilaterally 5/5, sensation intact and equal all extremities and dermatomes, no pronator drift Chest: equal rise and fall of the chest, no accessory muscle use, no heaves or thrills, Clear to auscultation, on room air, Cardiac: Regular rate and rhythm, telemetry reviewed, skin warm dry, cap refill <3 seconds, peripheral pulses +2 no JVD, no murmur, no edema GI: NABS x 4 quadrants, soft, nontender to palpation, no rebound, guarding or tenderness : [place] to [place] draining herlinda colored urine Psych: Anxious Skin: bruising and swelling to left knee MSK: Left lower leg in splint, in bucks traction 10lbs Results & Data Results & Data Vital Signs (Past 12 Hours) Vital Signs Temp Pulse Pulse Resp BP BP Pulse Ox 09/21/22 22:22 87 09/21/22 22:36 37.0 C 85 20 151/78 H 100 09/21/22 21:40 09/21/22 21:36 85 24 132/92 95 09/21/22 19:27 80 24 113/83 100 09/21/22 17:59 80 26 H 123/80 96 09/21/22 17:58 96 09/21/22 17:24 81 09/21/22 17:19 36.5 C 82 22 112/76 96 O2 Del Method 09/21/22 22:22 09/21/22 22:36 Room Air 09/21/22 21:40 Room Air 09/21/22 21:36 Room Air 09/21/22 19:27 Room Air 09/21/22 17:59 Room Air 09/21/22 17:58 Room Air 09/21/22 17:24 09/21/22 17:19 Room Air Laboratory Results Abnormal lab results 09/21/22 09/21/22 09/22/22 Range/Units 17:48 17:48 00:11 RDW Coeff of Umu 14.6 H (11.5-14.5) % Neut # (Auto) 7.02 H (1.40-6.50) K/uL Anion Gap 13 H (3-11) BUN/Creatinine Ratio 22.2 H (10-20) Glucose 142 H (70-99(Fasting)) mg/dl POC Glucose 195 H (70-99) mg/dl Diagnostic Findings Chest X-Ray 09/21/22 17:34 XR chest 1V portable HISTORY: 72 years-old Female fall acute chest trauma status post fall COMPARISON: None TECHNIQUE: AP view the chest FINDINGS: Cardiomediastinal and hilar silhouettes are within normal limits. Mild interstitial coarsening is likely chronic. No pneumothorax, pleural effusion, airspace consolidation or pulmonary edema. Chronic appearing deformity of the distal left clavicle. Spondylotic spurring of the spine. IMPRESSION: No acute process. ACT 112: Negative or not required by law. The above report was generated using voice recognition software. It may contain grammatical, syntax or spelling errors. Electronically signed by: Xavi Owens M.D. 09/21/2022 7:13 PM Femur X-Ray 09/21/22 17:34 XR femur LT 2V routine HISTORY: 72 years-old Female fall acute left knee pain status post fall COMPARISON: None TECHNIQUE: 2 views of the left femur FINDINGS: Mild osteoarthritis of the left hip. Total joint arthroplasty with patellar surfacing of the knee. There is an acute and comminuted distal femoral fracture which demonstrates apex lateral angulation with 4.8 cm dorsal displacement and a few centimeters of foreshortening/apposition. Questioned cortical irregularity of the posterior cortex of the proximal tibia. Moderate lateral prominent soft tissue swelling. IMPRESSION: 1. Acute, comminuted, angulated, displaced and foreshortened periprosthetic fracture of the distal femur. 2. Questioned cortical irregularity of the posterior cortex of the proximal tibia is likely artifactual. A subtle acute nondisplaced fracture considered less likely. ACT 112: Negative or not required by law. The above report was generated using voice recognition software. It may contain grammatical, syntax or spelling errors. Electronically signed by: Xavi Owens M.D. 09/21/2022 7:24 PM Femur X-Ray 09/21/22 17:34 XR femur RT 2V routine, XR knee RT 3V HISTORY: 72 years-old Female fall acute partially right lower extremity status post fall COMPARISON: None TECHNIQUE: 2 views of the right femur with 3 views of the right knee FINDINGS: FEMUR: [id number] osteoarthritis of the femoral acetabular joint. No acute fracture, dislocation or opaque foreign body. KNEE: Total joint arthroplasty without evidence of hardware complication. Small joint effusion. No acute fracture or dislocation identified. IMPRESSION: No acute fracture or dislocation. ACT 112: Negative or not required by law. The above report was generated using voice recognition software. It may contain grammatical, syntax or spelling errors. Electronically signed by: Annette Mills/8/2023 7:15 PM Knee X-Ray 09/21/22 17:34 XR femur RT 2V routine, XR knee RT 3V HISTORY: 72 years-old Female fall acute partially right lower extremity status post fall COMPARISON: None TECHNIQUE: 2 views of the right femur with 3 views of the right knee FINDINGS: FEMUR: [id number] osteoarthritis of the femoral acetabular joint. No acute fracture, dislocation or opaque foreign body. KNEE: Total joint arthroplasty without evidence of hardware complication. Small joint effusion. No acute fracture or dislocation identified. IMPRESSION: No acute fracture or dislocation. ACT 112: Negative or not required by law. The above report was generated using voice recognition software. It may contain grammatical, syntax or spelling errors. Electronically signed by: Xavi Owens M.D. 09/21/2022 7:15 PM Medications Administered Home Medications albuterol sulfate 90 mcg/actuation aerosol inhaler 2 puff inhalation Q4H PRN Wheezing 09/21/22 [History Confirmed 09/21/22] amitriptyline 50 mg tablet 50 mg PO HS 09/21/22 [History Confirmed 09/21/22] budesonide 1 mg/2 mL suspension for nebulization (Pulmicort) 1 mg inhalation DAILY PRN NEEDED RESPIRATORY ILLNESS 09/21/22 [History Confirmed 09/21/22] calcium carbonate 500 mg-vitamin D3 3.125 mcg (125 unit) tablet 1 tab PO DAILY 09/21/22 [History Confirmed 09/21/22] cyanocobalamin (vitamin B-12) 1,000 mcg tablet (Vitamin B-12) 1,000 mcg PO DAILY 09/21/22 [History Confirmed 09/21/22] duloxetine 60 mg capsule,delayed release 60 mg PO DAILY 09/21/22 [History Confirmed 09/21/22] famotidine 20 mg tablet 20 mg PO HS 09/21/22 [History Confirmed 09/21/22] fluticasone propionate 110 mcg/actuation HFA aerosol inhaler (Flovent HFA) 2 puff inhalation BID 09/21/22 [History Confirmed 09/21/22] fluticasone propionate 50 mcg/actuation nasal spray,suspension 2 spray intranasal DAILY PRN Congestion 09/21/22 [History Confirmed 09/21/22] hydrocortisone 2.5 % topical ointment 1 applic topical DIRECTED PRN NEEDED 09/21/22 [History Confirmed 09/21/22] magnesium citrate 100 mg capsule 100 mg PO QAM 09/21/22 [History Confirmed 09/21/22] multivitamin with minerals 1 tab PO DAILY 09/21/22 [History Confirmed 09/21/22] omeprazole 40 mg capsule,delayed release 40 mg PO QAM 09/21/22 [History Confirmed 09/21/22] potassium citrate 99 mg capsule 99 mg PO QAM 09/21/22 [History Confirmed 09/21/22] semaglutide 0.25 mg or 0.5 mg (2 mg/3 mL) subcutaneous pen injector (Ozempic) 0.5 mg subcut WK 09/21/22 [History Confirmed 09/21/22] valacyclovir 1 gram tablet 1,000 mg PO Q12H PRN Cold Sores 09/21/22 [History Confirmed 09/21/22] Active Medications Albuterol (Albuterol Hfa 8 Gm Inhaler) 2 puffs INH Q4H PRN PRN Reason: Wheezing Stop: 10/21/22 22:37 Amitriptyline HCl (Amitriptyline Hcl 50 Mg Tab) 50 mg PO HS ELAINE Stop: 10/21/22 22:37 Last Admin: 09/22/22 00:19 Dose: 50 mg Budesonide (Budesonide 0.5 Mg/2 Ml Vial (Pulmicort)) 1 mg INH DAILY PRN PRN Reason: NEEDED RESPIRATORY ILLNESS Stop: 10/21/22 22:37 Calcium/Vitamin D (Calcium 600mg + Vit D 400 Iu Tab) 1 tab PO DAILY ELAINE Stop: 10/22/22 08:59 Cyanocobalamin (Cyanocobalamin (B-12) 500 Mcg Tablet) 1,000 mcg PO DAILY ELAINE Stop: 10/22/22 08:59 Dextrose (Dextrose 50% 50 Ml Syringe) 25 - 50 ml IV UD PRN; Protocol PRN Reason: Hypoglycemia Protocol Stop: 10/21/22 22:37 Diazepam (Diazepam 5 Mg/Ml Inj 10ml Vial) 2.5 mg IV ONE PRN PRN Reason: muscle spasm Duloxetine HCl (Duloxetine Hcl 60 Mg Cap) 60 mg PO DAILY ELAINE Stop: 10/22/22 08:59 Famotidine (Famotidine 20 Mg Tab) 20 mg PO HS [facility] Stop: 10/21/22 22:37 Last Admin: 09/22/22 00:19 Dose: 20 mg Fluticasone Furoate (Fluticasone Furoate 200mcg 14 Puffs/Inhaler) 1 puffs INH DAILY ELAINE Stop: 10/22/22 08:59 Fluticasone Propionate (Fluticasone Propionate Na Spr 16 Gm Btl) 2 sprays NA DAILY PRN PRN Reason: Congestion Stop: 10/21/22 22:37 Glucagon (Glucagon For Inj 1 Mg Vial) 1 mg SQ UD PRN; Protocol PRN Reason: Hypoglycemia Protocol Stop: 10/21/22 22:37 Glucose (Glucose 10 Tab/Tube) 4 - 8 tab PO UD PRN; Protocol PRN Reason: Hypoglycemia Treatment Stop: 10/21/22 22:37 Glucose (Glucose 40% Gel 15 Gm Tube) 15 - 30 gm PO UD PRN; Protocol PRN Reason: Hypoglycemia Protocol Stop: 10/21/22 22:37 Sodium Chloride (Nss 1000ml) 1,000 mls @ 80 mls/hr IV .[id number] ELAINE Stop: 10/21/22 22:37 Last Admin: 09/21/22 23:16 Dose: 80 mls/hr Acetaminophen (Ofirmev) 1,000 mg in 100 mls @ 400 mls/hr IV Q8H PRN PRN Reason: Pain Stop: 09/24/22 22:37 Ketamine HCl 10 mg/ Sodium (Chloride) 50.2 mls @ 301.2 mls/hr IV ONE PRN PRN Reason: severe pain 8-10/10 Insulin Aspart (Insulin Aspart Per Unit Charge) 0 units SC Q6 ELAINE Stop: 10/22/22 00:00 Last Admin: 09/22/22 00:17 Dose: 2 units Ketorolac Tromethamine (Ketorolac Tromethamine 15 Mg/Ml Vial) 15 mg IV Q6H PRN PRN Reason: Severe Pain (Scale 7, 8, 9,10) Stop: 09/26/22 22:37 Miscellaneous (Carbohydrates For Hypoglycemia ) 15 - 30 gm PO UD PRN PRN Reason: Hypoglycemia Protocol Stop: 10/21/22 22:37 Multivitamins/Minerals (Cerovite Adv Formula Tab) 1 tab PO DAILY [facility] Stop: 10/22/22 08:59 Nitroglycerin (Nitroglycerin Sl 0.4 Mg/Tab Tab) 0.4 mg SL Q5M PRN PRN Reason: Chest Pain Stop: 10/21/22 22:37 Pantoprazole Sodium (Pantoprazole 40 Mg Tab) 40 mg PO QAM ELAINE Stop: 10/22/22 08:59 ECG Additional Comments: Sinus rhythm with Premature atrial complexes Left axis deviation Prolonged QT Abnormal ECG When compared with ECG of 14-MAR-2008 11:50, Premature ventricular complexes are no longer Present Premature atrial complexes are now Present Coding Level of Care Code 38167 CRITICAL CARE 1ST 30-74M Diagnoses Closed fracture of left distal femur S72.492A Encounter type: initial encounter Fracture morphology: other fracture Acute pain R52 Diabetes mellitus, type II E11.9 Adjustment disorder F43.20 GERD (gastroesophageal reflux disease) K21.9 Asthma J45.909 (1) Closed fracture of left distal femur Encounter type: initial encounter Fracture morphology: other fracture Qualified Code(s): S72.492A - Other fracture of lower end of left femur, initial encounter for closed fracture
[2022-09-22] MEDS: INSULIN ASPART PER UNIT CHARGE SC SCH ×3 (00:17→12:27)
[2022-09-22] MEDS: ACETAMINOPHEN 1,000 MG/100 ML VIAL IV PRN ×2 (02:33→09:43)
[2022-09-22 06:07] LABS: Creatinine Clr Calc Pharmacy 107.4 ml/min; Est GFR (African American) 103.5 ml/min; Est GFR (Non-African American) 89.3 ml/min
[2022-09-22 06:34] LABS: Basophils # (auto) 0.02 K/uL (0-0.2); Basophils % (auto) 0.2 %; Eosinophils # (auto) 0.02 K/uL (0-0.50); Eosinophils % (auto) 0.2 %; Hematocrit (blood only) 36.5 % (37.0-47.0); Hemoglobin 11.7 g/dl (12.0-16.0); Immature Granulocytes # (auto) 0.03 K/uL (0.01-0.20); Immature Granulocytes % (auto) 0.3 %; Lymphocytes # (auto) 2.04 K/uL (1.2-3.4); Lymphocytes % (auto) 22.2 %; Mean Corpuscular Hemoglobin 27.4 pg (25.0-34.0); Mean Corpuscular Hgb Conc 32.1 g/dL (32.0-36.0); Mean Corpuscular Volume 85.5 fL (80.0-100.0); Mean Platelet Volume 9.8 fL (9.4-12.4); Monocytes # (auto) 0.69 K/uL (0.11-0.59); Monocytes % (auto) 7.5 %; Neutrophils % (auto) 69.6 %; Platelet Count 197 K/uL (130-400); RDW Coefficient of Variation 14.6 % (11.5-14.5); RDW Standard Deviation 44.9 fL (36.4-46.3); Red Blood Count 4.27 M/uL (4.20-5.40)
--- NOTE | 2022-09-22 06:56 | Orthopedic Consultation ---
Date of Consultation September 22, 2022 Assessment & Plan (1) Closed fracture of left distal femur: IMPRESSION: Left distal femur periprosthetic fracture, closed, comminuted, concern for bone quality and stability of prosthesis. PLAN: After extensive discussion with the patient regarding above findings, she will require surgery, but recommend transfer to tertiary care, with trauma and joints services. I spoke with Dr. Carias, Ortho, in [place] who agreed and accepted her for transfer. Present on Admission?: Yes History of Present Illness Reason for Consultation: Left distal femur periprosthetic fracture Requesting Physician: Roland Seay MD Attending Physician: Kishore Espitia MD History of Present Illness 72-year-old female with PMH of prediabetes, moderate persistent asthma, sleep apnea, varicose veins of both legs with edema, post gastric surgery syndrome, GERD, morbid obesity, fibromyalgia, depression, bilateral TKA's presents with ground level fall after her daughter fell in the driveway behind her taking out her knees and sustainied a left distal femur periprosthetic fracture. Patient was ambulatory prior to the fall. I was consulted for further evaluation and treatment. Pain control IV Tylenol as needed and IV Toradol as needed. Narcotics cause hypotension. Per admitting service patient should be at acceptable risk to proceed with with surgery. Allergies Allergy/AdvReac Type Severity Reaction Status Date / Time hydrocodone Allergy Severe HYPOTENSION Verified 09/21/22 18:21 /SHOCK oxycodone Allergy Severe HYPOTENSION Verified 09/21/22 18:21 /SHOCK Sulfa (Sulfonamide Allergy Severe HIVES IN Verified 09/21/22 18:21 Antibiotics) THROAT, EDEMA OF AIRWAY. adhesive tape Allergy Intermediate SKIN Verified 09/21/22 18:21 TEARS/REDDENED tetanus toxoid, adsorbed Allergy Intermediate RASH/FEVER Verified 09/21/22 18:21 tramadol AdvReac Severe BP DROPPED Verified 09/21/22 18:22 SEVERELY Home Medications Medication Instructions Recorded Confirmed Type albuterol sulfate 90 mcg/actuation 2 puff inhalation Q4H PRN Wheezing 09/21/22 0 09/21/22 History aerosol inhaler amitriptyline 50 mg tablet 50 mg PO HS 09/21/22 09/21/22 History budesonide 1 mg/2 mL suspension 1 mg inhalation DAILY PRN 09/21/22 09/21/22 History for nebulization (Pulmicort) NEEDED RESPIRATORY ILLNESS calcium carbonate 500 mg-vitamin 1 tab PO DAILY 09/21/22 09/21/22 History D3 3.125 mcg (125 unit) tablet cyanocobalamin (vitamin B-12) 1,000 mcg PO DAILY 09/21/22 09/21/22 History 1,000 mcg tablet (Vitamin B-12) duloxetine 60 mg capsule,delayed 60 mg PO DAILY 09/21/22 09/21/22 History release famotidine 20 mg tablet 20 mg PO HS 09/21/22 09/21/22 History fluticasone propionate 110 2 puff inhalation BID 09/21/22 09/21/22 History mcg/actuation HFA aerosol inhaler (Flovent HFA) fluticasone propionate 50 2 spray intranasal DAILY PRN 09/21/22 09/21/22 History mcg/actuation nasal Congestion spray,suspension hydrocortisone 2.5 % topical 1 applic topical DIRECTED PRN 09/21/22 09/21/22 History ointment NEEDED magnesium citrate 100 mg capsule 100 mg PO QAM 09/21/22 09/21/22 History multivitamin with minerals 1 tab PO DAILY 09/21/22 09/21/22 History omeprazole 40 mg capsule,delayed 40 mg PO QAM 09/21/22 09/21/22 History release potassium citrate 99 mg capsule 99 mg PO QAM 09/21/22 09/21/22 History semaglutide 0.25 mg or 0.5 mg (2 0.5 mg subcut WK 09/21/22 09/21/22 History mg/3 mL) subcutaneous pen injector (Ozempic) valacyclovir 1 gram tablet 1,000 mg PO Q12H PRN Cold Sores 09/21/22 09/21/22 History Patient History Medical History Adjustment disorder Asthma Diabetes mellitus, type II GERD (gastroesophageal reflux disease) Obesity (BMI 30-39.9) Osteoarthritis Surgical History H/O gastric bypass H/O total knee replacement Family History Grandmother (Maternal) Breast cancer Aunt Ovarian cancer Mother Deep vein thrombosis Diabetes Father Leukemia Son Brain tumor Grandfather (Paternal) Myocardial infarction Daughter Multiple sclerosis Social History Smoking Status: Never smoker Hx Alcohol Use: No Hx Substance Use: No Preferred Language: Omani Supervisor Crack Off Required: No Beliefs That Will Affect Care: None Current Living Situation: Spouse Current Living Situation Comment: Lives at home with Other Information That Helps Us Care for You: No Feels Safe at Home: Yes Safety Concerns: Feels Safe At This Time Review of Systems Review of Systems: All systems reviewed & are unremarkable except as noted in HPI & below Physical Exam Physical Exam: LLE: In [place] traction. Wiggling toes. Sensation to light touch intact distally. BCR < 2 sec. Previous anterior incision well healed. + Bruising anterior/lateral knee. + Swelling and TTP about the knee. Results & Data Vital Signs (Past 12 Hours) Vital Signs Temp Pulse Pulse Resp BP BP Pulse Ox 09/22/22 06:30 137 H 15 91 09/22/22 06:30 107/87 09/22/22 06:26 79 14 96 09/22/22 06:26 113/64 09/22/22 06:20 71 14 96 09/22/22 06:20 111/71 09/22/22 06:15 66 14 95 09/22/22 06:15 100/75 09/22/22 06:10 72 12 95 09/22/22 06:10 111/77 09/22/22 06:05 67 14 94 09/22/22 06:05 115/74 09/22/22 06:00 70 15 95 09/22/22 06:00 119/70 09/22/22 05:55 68 14 96 09/22/22 05:55 111/75 09/22/22 05:51 70 15 93 09/22/22 05:51 116/71 09/22/22 05:50 73 15 95 09/22/22 05:45 67 14 95 09/22/22 05:45 127/69 09/22/22 05:40 70 14 94 09/22/22 05:40 125/82 09/22/22 05:35 66 14 95 09/22/22 05:35 102/74 09/22/22 05:30 68 16 95 09/22/22 05:25 70 15 96 09/22/22 05:25 132/88 09/22/22 05:20 69 13 95 09/22/22 05:20 124/78 09/22/22 05:15 71 13 97 09/22/22 05:15 139/90 09/22/22 05:10 71 16 96 09/22/22 05:10 140/76 09/22/22 05:05 70 14 96 09/22/22 05:05 126/77 09/22/22 05:00 75 15 95 09/22/22 05:00 151/75 H 09/22/22 04:56 135/77 09/22/22 04:56 73 13 95 09/22/22 04:55 74 10 L 96 09/22/22 04:50 73 14 96 09/22/22 04:50 138/82 09/22/22 04:45 75 13 97 09/22/22 04:45 140/86 09/22/22 04:41 80 11 L 97 09/22/22 04:41 122/93 09/22/22 04:40 78 12 98 09/22/22 04:35 77 14 100 09/22/22 04:34 80 16 85 L 09/22/22 04:34 107/84 09/22/22 04:30 81 15 96 09/22/22 04:25 81 11 L 97 09/22/22 04:20 78 23 90 09/22/22 04:20 126/101 H 09/22/22 04:15 77 26 H 97 09/22/22 04:10 74 22 93 09/22/22 04:05 71 16 98 09/22/22 04:00 75 21 100 09/22/22 04:00 125/72 09/22/22 03:55 65 14 97 09/22/22 03:50 71 17 96 09/22/22 03:45 70 17 97 09/22/22 03:40 74 33 H 95 09/22/22 03:35 71 16 95 09/22/22 03:30 67 14 95 09/22/22 03:25 66 18 96 09/22/22 03:20 70 15 95 09/22/22 03:15 70 18 96 09/22/22 03:10 70 15 97 09/22/22 03:05 70 15 96 09/22/22 03:01 71 15 96 09/22/22 03:01 115/74 09/22/22 03:00 67 15 95 09/22/22 02:55 79 25 H 94 09/22/22 02:50 72 17 96 09/22/22 02:45 71 13 96 09/22/22 02:40 73 19 98 09/22/22 02:35 81 28 H 98 09/22/22 02:30 75 21 99 09/22/22 02:00 75 16 95 09/22/22 01:30 78 15 94 09/22/22 01:01 80 14 09/22/22 01:01 140/71 09/22/22 01:00 81 13 96 09/22/22 00:30 78 13 98 09/22/22 00:00 81 25 H 98 09/21/22 23:56 90 23 09/21/22 23:56 158/109 H 09/21/22 23:30 79 18 09/21/22 23:00 74 18 09/21/22 22:30 80 26 H 09/21/22 22:22 84 17 09/21/22 21:30 74 26 H 98 09/21/22 21:30 132/93 09/21/22 21:01 117/90 09/21/22 21:01 78 30 H 99 09/21/22 21:00 82 24 99 09/21/22 20:46 106/79 09/21/22 20:46 78 17 97 09/21/22 20:30 80 19 99 09/21/22 20:30 151/122 H 09/21/22 20:16 158/128 H 09/21/22 20:16 81 22 98 09/21/22 20:00 16 97 09/21/22 19:46 78 20 96 09/21/22 19:46 156/97 H 09/21/22 19:31 83 25 H 94 09/21/22 19:31 142/105 H 09/21/22 19:30 79 31 H 100 09/21/22 19:24 113/83 09/21/22 19:24 78 23 91 09/21/22 19:16 81 24 99 09/21/22 19:16 139/101 H 09/21/22 19:07 77 23 99 09/21/22 19:07 70/33 L 09/21/22 19:04 79 22 96 09/21/22 19:04 91/59 L 09/21/22 19:02 79 26 H 97 09/21/22 19:02 105/86 09/21/22 19:00 79 19 99 09/21/22 18:56 66/36 L 09/21/22 18:56 80 20 98 09/22/22 01:31 09/22/22 00:55 36.8 C 09/21/22 22:22 87 09/21/22 22:36 37.0 C 85 20 151/78 H 100 09/21/22 21:40 09/21/22 21:36 85 24 132/92 95 09/21/22 19:27 80 24 113/83 100 O2 Del Method O2 Del Method 09/22/22 06:30 09/22/22 06:30 09/22/22 06:26 09/22/22 06:26 09/22/22 06:20 09/22/22 06:20 09/22/22 06:15 09/22/22 06:15 09/22/22 06:10 09/22/22 06:10 09/22/22 06:05 09/22/22 06:05 09/22/22 06:00 09/22/22 06:00 09/22/22 05:55 09/22/22 05:55 09/22/22 05:51 09/22/22 05:51 09/22/22 05:50 09/22/22 05:45 09/22/22 05:45 09/22/22 05:40 09/22/22 05:40 09/22/22 05:35 09/22/22 05:35 09/22/22 05:30 09/22/22 05:25 09/22/22 05:25 09/22/22 05:20 09/22/22 05:20 09/22/22 05:15 09/22/22 05:15 09/22/22 05:10 09/22/22 05:10 09/22/22 05:05 09/22/22 05:05 09/22/22 05:00 09/22/22 05:00 09/22/22 04:56 09/22/22 04:56 09/22/22 04:55 09/22/22 04:50 09/22/22 04:50 09/22/22 04:45 09/22/22 04:45 09/22/22 04:41 09/22/22 04:41 09/22/22 04:40 09/22/22 04:35 09/22/22 04:34 09/22/22 04:34 09/22/22 04:30 09/22/22 04:25 09/22/22 04:20 09/22/22 04:20 09/22/22 04:15 09/22/22 04:10 09/22/22 04:05 09/22/22 04:00 09/22/22 04:00 09/22/22 03:55 09/22/22 03:50 09/22/22 03:45 09/22/22 03:40 09/22/22 03:35 09/22/22 03:30 09/22/22 03:25 09/22/22 03:20 09/22/22 03:15 09/22/22 03:10 09/22/22 03:05 09/22/22 03:01 09/22/22 03:01 09/22/22 03:00 09/22/22 02:55 09/22/22 02:50 09/22/22 02:45 09/22/22 02:40 09/22/22 02:35 09/22/22 02:30 09/22/22 02:00 09/22/22 01:30 09/22/22 01:01 09/22/22 01:01 09/22/22 01:00 09/22/22 00:30 09/22/22 00:00 09/21/22 23:56 09/21/22 23:56 09/21/22 23:30 09/21/22 23:00 09/21/22 22:30 09/21/22 22:22 09/21/22 21:30 09/21/22 21:30 09/21/22 21:01 09/21/22 21:01 09/21/22 21:00 09/21/22 20:46 09/21/22 20:46 09/21/22 20:30 09/21/22 20:30 09/21/22 20:16 09/21/22 20:16 09/21/22 20:00 09/21/22 19:46 09/21/22 19:46 09/21/22 19:31 09/21/22 19:31 09/21/22 19:30 09/21/22 19:24 09/21/22 19:24 09/21/22 19:16 09/21/22 19:16 09/21/22 19:07 09/21/22 19:07 09/21/22 19:04 09/21/22 19:04 09/21/22 19:02 09/21/22 19:02 09/21/22 19:00 09/21/22 18:56 09/21/22 18:56 09/22/22 01:31 Room Air 09/22/22 00:55 09/21/22 22:22 09/21/22 22:36 Room Air 09/21/22 21:40 Room Air 09/21/22 21:36 Room Air 09/21/22 19:27 Room Air Laboratory Results Laboratory Results WBC 9.20 K/ul (4.8-10.8) 09/22/22 04:30 RBC 4.27 M/uL (4.20-5.40) 09/22/22 04:30 Hgb 11.7 g/dl (12.0-16.0) L D 09/22/22 04:30 Hct 36.5 % (37.0-47.0) L 09/22/22 04:30 MCV 85.5 fL (80.0-100.0) 09/22/22 04:30 MCH 27.4 pg (25.0-34.0) 09/22/22 04:30 MCHC 32.1 g/dL (32.0-36.0) 09/22/22 04:30 RDW Std Deviation 44.9 fL (36.4-46.3) 09/22/22 04:30 RDW Coeff of Umu 14.6 % (11.5-14.5) H 09/22/22 04:30 Plt Count 197 K/uL (130-400) 09/22/22 04:30 MPV 9.8 fL (9.4-12.4) 09/22/22 04:30 Immature Gran % (Auto) 0.3 % 09/22/22 04:30 Neut % (Auto) 69.6 % 09/22/22 04:30 Lymph % (Auto) 22.2 % 09/22/22 04:30 [place] % (Auto) 7.5 % 09/22/22 04:30 Eos % (Auto) 0.2 % 09/22/22 04:30 Baso % (Auto) 0.2 % 09/22/22 04:30 Neut # (Auto) 6.40 K/uL (1.40-6.50) 09/22/22 04:30 Lymph # (Auto) 2.04 K/uL (1.2-3.4) 09/22/22 04:30 [place] # (Auto) 0.69 K/uL (0.11-0.59) H 09/22/22 04:30 Eos # (Auto) 0.02 K/uL (0-0.50) 09/22/22 04:30 Baso # (Auto) 0.02 K/uL (0-0.2) 09/22/22 04:30 Immature Gran # (Auto) 0.03 K/uL (0.01-0.20) 09/22/22 04:30 PT 10.3 Seconds (9.0-12.0) 09/21/22 17:48 INR 0.9 (0.9-1.1) 09/21/22 17:48 APTT 24.5 Seconds (21.0-31.0) 09/21/22 17:48 PTT Ratio 0.9 09/21/22 17:48 Sodium 137 mmol/L (136-145) 09/22/22 04:30 Potassium 4.0 mmol/L (3.5-5.1) 09/22/22 04:30 Chloride 108 mmol/L (98-107) H 09/22/22 04:30 Carbon Dioxide 20 mmol/L (21-32) L 09/22/22 04:30 Anion Gap 9 (3-11) 09/22/22 04:30 BUN 13 mg/dl (6-23) 09/22/22 04:30 Creatinine 0.65 mg/dl (0.6-1.2) 09/22/22 04:30 Est Cr Clr Drug Dosing 107.4 ml/min 09/22/22 04:30 Est GFR ( Amer) 103.5 ml/min 09/22/22 04:30 Est GFR (Non-Af Amer) 89.3 ml/min 09/22/22 04:30 BUN/Creatinine Ratio 20.0 (10-20) 09/22/22 04:30 Glucose 113 mg/dl (70-99(Fasting)) H 09/22/22 04:30 POC Glucose 101 mg/dl (70-99) H 09/22/22 06:40 Calcium 8.0 mg/dl (8.6-10.3) L 09/22/22 04:30 Ionized Calcium 1.07 mmol/L (1.12-1.32) L 09/22/22 04:30 Magnesium 2.0 mg/dl (1.7-2.4) 09/22/22 04:30 Total Bilirubin 0.4 mg/dl (0.2-1.0) 09/21/22 17:48 AST 19 U/L (13-39) 09/21/22 17:48 ALT 14 U/L (7-52) 09/21/22 17:48 Alkaline Phosphatase 82 U/L (34-104) 09/21/22 17:48 Total Protein 7.2 gm/dl (6.0-8.3) 09/21/22 17:48 Albumin 4.1 gm/dl (3.4-5.0) 09/21/22 17:48 Globulin 3.1 gm/dl (2.5-4.0) 09/21/22 17:48 Albumin/Globulin Ratio 1.3 (0.9-2) 09/21/22 17:48 SARS-CoV-2, RNA, NAAT NEGATIVE (NEGATIVE) 09/21/22 19:10 Blood Type A Positive 09/21/22 17:48 Antibody Screen NEGATIVE 09/21/22 17:48 Impressions Chest X-Ray 09/21/22 17:34 XR chest 1V portable HISTORY: 72 years-old Female fall acute chest trauma status post fall COMPARISON: None TECHNIQUE: AP view the chest FINDINGS: Cardiomediastinal and hilar silhouettes are within normal limits. Mild interstitial coarsening is likely chronic. No pneumothorax, pleural effusion, airspace consolidation or pulmonary edema. Chronic appearing deformity of the distal left clavicle. Spondylotic spurring of the spine. IMPRESSION: No acute process. ACT 112: Negative or not required by law. The above report was generated using voice recognition software. It may contain grammatical, syntax or spelling errors. Electronically signed by: Xavi Owens M.D. 09/21/2022 7:13 PM Femur X-Ray 09/21/22 17:34 XR femur LT 2V routine HISTORY: 72 years-old Female fall acute left knee pain status post fall COMPARISON: None TECHNIQUE: 2 views of the left femur FINDINGS: Mild osteoarthritis of the left hip. Total joint arthroplasty with patellar surfacing of the knee. There is an acute and comminuted distal femoral fracture which demonstrates apex lateral angulation with 4.8 cm dorsal displacement and a few centimeters of foreshortening/apposition. Questioned cortical irregularity of the posterior cortex of the proximal tibia. Moderate lateral prominent soft tissue swelling. IMPRESSION: 1. Acute, comminuted, angulated, displaced and foreshortened periprosthetic fracture of the distal femur. 2. Questioned cortical irregularity of the posterior cortex of the proximal tibia is likely artifactual. A subtle acute nondisplaced fracture considered less likely. ACT 112: Negative or not required by law. The above report was generated using voice recognition software. It may contain grammatical, syntax or spelling errors. Electronically signed by: Xavi Owens M.D. 09/21/2022 7:24 PM Knee X-Ray 09/21/22 17:34 XR femur RT 2V routine, XR knee RT 3V HISTORY: 72 years-old Female fall acute partially right lower extremity status post fall COMPARISON: None TECHNIQUE: 2 views of the right femur with 3 views of the right knee FINDINGS: FEMUR: [id number] osteoarthritis of the femoral acetabular joint. No acute fracture, dislocation or opaque foreign body. KNEE: Total joint arthroplasty without evidence of hardware complication. Small joint effusion. No acute fracture or dislocation identified. IMPRESSION: No acute fracture or dislocation. ACT 112: Negative or not required by law. The above report was generated using voice recognition software. It may contain grammatical, syntax or spelling errors. Electronically signed by: Xavi Owens M.D. 09/21/2022 7:15 PM (1) Closed fracture of left distal femur Encounter type: initial encounter Fracture morphology: other fracture Qualified Code(s): S72.492A - Other fracture of lower end of left femur, initial encounter for closed fracture
--- NOTE | 2022-09-22 07:04 | Electrocardiogram Report ---
Test Reason : Blood Pressure : / mmHG Vent. Rate : 081 BPM Atrial Rate : 081 BPM P-R Int : 136 ms QRS Dur : 084 ms QT Int : 434 ms P-R-T Axes : 057 -30 042 degrees QTc Int : 504 ms Sinus rhythm with Premature atrial complexes Left axis deviation Prolonged QT Abnormal ECG When compared with ECG of 14-MAR-2008 11:50, Premature ventricular complexes are no longer Present Premature atrial complexes are now Present Confirmed by Aki Baxter ([id number]) on 09/22/2022 7:03:50 AM Referred By: REFERRED SELF Confirmed By:Jaylen Baxter
--- NOTE | 2022-09-22 07:10 | Electrocardiogram Report ---
Test Reason : Blood Pressure : / mmHG Vent. Rate : 075 BPM Atrial Rate : 075 BPM P-R Int : 144 ms QRS Dur : 084 ms QT Int : 434 ms P-R-T Axes : 048 -24 009 degrees QTc Int : 484 ms Sinus rhythm with Premature atrial complexes Nonspecific ST abnormality Otherwise normal ECG When compared with ECG of 21-SEP-2022 18:01, (unconfirmed) Nonspecific T wave abnormality now evident in Inferior leads Confirmed by Aki Baxter ([id number]) on 09/22/2022 7:09:58 AM Referred By: REFERRED SELF Confirmed By:Jaylen Baxter
--- NOTE | 2022-09-22 07:12 | Critical Care Progress Note ---
Date of Service September 22, 2022 Assessment & Plan (1) Closed fracture of left distal femur: (2) Acute pain: (3) Diabetes mellitus, type II: (4) Adjustment disorder: (5) GERD (gastroesophageal reflux disease): (6) Asthma: Plan Reason Critically Ill: Patient transferred to ICU for acute pain control in the setting of displaced periprosthetic fracture of distal femur and intolera nce/hypotension related to narcotics. Neuro - Acute pain, Adjustment disorder with anxiety/depression CAM ICU: Negative - For her Acute pain- continue with Tylenol Toradol and Ultram -S/p 1 dose of ketamine - Valium if needed for muscle spasms or if dissociation occurs - Patient declined nerve block at this time Adjustment disorder - continue with Amitriptyline, Duloxetine, Cardiac - ? PAF - Patient reports history of ? afib that was short lived, but more she describes this sounds more like anxiety, as she reports that it calms down when she relaxes - she is not on anticoagulation or rate control agents - Currently sinus rhythm Respiratory -intermittent asthma - Patient reports well controlled with infrequent use of her Albuterol - Continue with MISBAH PRN and ICS daily- no PFTS available for review GI - Gastric bypass, GERD - Continue with PPI RENAL/LYTES - -- Normal anion gap metabolic acidosis Could be from medication - Anderson to gravity ENDO - DMII - NPO- BG q 6 hours - She is on Ozempic at home HEME - No acute needs - Patient Type and Screened ID - No acute needs --Prophylaxis VTE: IPC GI: Protonix and Pepcid Lines: Peripheral Diet: N.p.o. Plan: In/out: +800, urine output 1450 Plan for the patient was to go to the OR by orthopedic surgeon did evaluate the images again and they are recommending transfer the patient to a tertiary center as it is a complex fracture. Dr. Christianson was made aware of it. Please note the above document was generated using voice recognition software. It may contain grammatical, syntax or spelling errors.Any formal questions or concerns about the content, text or information contained within the body of this dictation should be directly addressed to the provider for clarification.. Admission and Anticipated Discharge Date Admission Date: September 21, 2022 Subjective Patient seen and examined at bedside. No acute distress, no adverse events overnight Pain is very well controlled, she only got 1 dose of ketamine overnight Patient is able to tolerate Ultram and Tylenol. Denies any chest pain, no shortness of breath, no headache, no nausea, no vomiting She is n.p.o. for the OR today. Review of Systems Review of Systems: All systems reviewed & are unremarkable except as noted in Subjective Physical Exam Physical Exam: Constitutional: No acute distress HEENT: EOMI, PERRLA Respiratory system: Good air entry bilaterally, no wheeze, no rhonchi, no crackles CVS: S1-S2 positive, no murmurs or gallops Abdomen: Soft, nontender, nondistended, positive bowel sounds x4, obese Extremities: +2 pulses bilaterally radialis/ dorsalis pedis, no cyanosis, no edema, left leg in traction Neuro: Awake alert oriented x3 Psych: Normal mood and affect G/U: Positive Anderson Skin: no rashes, warm and dry Lymphatic: no cervical or axillary lymphadenopathy Results & Data Results & Data Vital Signs (Past 12 Hours) Vital Signs Temp Pulse Pulse Resp BP BP Pulse Ox 09/22/22 06:30 137 H 15 91 09/22/22 06:30 107/87 09/22/22 06:26 79 14 96 09/22/22 06:26 113/64 09/22/22 06:20 71 14 96 09/22/22 06:20 111/71 09/22/22 06:15 66 14 95 09/22/22 06:15 100/75 09/22/22 06:10 72 12 95 09/22/22 06:10 111/77 09/22/22 06:05 67 14 94 09/22/22 06:05 115/74 09/22/22 06:00 70 15 95 09/22/22 06:00 119/70 09/22/22 05:55 68 14 96 09/22/22 05:55 111/75 09/22/22 05:51 70 15 93 09/22/22 05:51 116/71 09/22/22 05:50 73 15 95 09/22/22 05:45 67 14 95 09/22/22 05:45 127/69 09/22/22 05:40 70 14 94 09/22/22 05:40 125/82 09/22/22 05:35 66 14 95 09/22/22 05:35 102/74 09/22/22 05:30 68 16 95 09/22/22 05:25 70 15 96 09/22/22 05:25 132/88 09/22/22 05:20 69 13 95 09/22/22 05:20 124/78 09/22/22 05:15 71 13 97 09/22/22 05:15 139/90 09/22/22 05:10 71 16 96 09/22/22 05:10 140/76 09/22/22 05:05 70 14 96 09/22/22 05:05 126/77 09/22/22 05:00 75 15 95 09/22/22 05:00 151/75 H 09/22/22 04:56 135/77 09/22/22 04:56 73 13 95 09/22/22 04:55 74 10 L 96 09/22/22 04:50 73 14 96 09/22/22 04:50 138/82 09/22/22 04:45 75 13 97 09/22/22 04:45 140/86 09/22/22 04:41 80 11 L 97 09/22/22 04:41 122/93 09/22/22 04:40 78 12 98 09/22/22 04:35 77 14 100 09/22/22 04:34 80 16 85 L 09/22/22 04:34 107/84 09/22/22 04:30 81 15 96 09/22/22 04:25 81 11 L 97 09/22/22 04:20 78 23 90 09/22/22 04:20 126/101 H 09/22/22 04:15 77 26 H 97 09/22/22 04:10 74 22 93 09/22/22 04:05 71 16 98 09/22/22 04:00 75 21 100 09/22/22 04:00 125/72 09/22/22 03:55 65 14 97 09/22/22 03:50 71 17 96 09/22/22 03:45 70 17 97 09/22/22 03:40 74 33 H 95 09/22/22 03:35 71 16 95 09/22/22 03:30 67 14 95 09/22/22 03:25 66 18 96 09/22/22 03:20 70 15 95 09/22/22 03:15 70 18 96 09/22/22 03:10 70 15 97 09/22/22 03:05 70 15 96 09/22/22 03:01 71 15 96 09/22/22 03:01 115/74 09/22/22 03:00 67 15 95 09/22/22 02:55 79 25 H 94 09/22/22 02:50 72 17 96 09/22/22 02:45 71 13 96 09/22/22 02:40 73 19 98 09/22/22 02:35 81 28 H 98 09/22/22 02:30 75 21 99 09/22/22 02:00 75 16 95 09/22/22 01:30 78 15 94 09/22/22 01:01 80 14 09/22/22 01:01 140/71 09/22/22 01:00 81 13 96 09/22/22 00:30 78 13 98 09/22/22 00:00 81 25 H 98 09/21/22 23:56 90 23 09/21/22 23:56 158/109 H 09/21/22 23:30 79 18 09/21/22 23:00 74 18 09/21/22 22:30 80 26 H 09/21/22 22:22 84 17 09/21/22 21:30 74 26 H 98 09/21/22 21:30 132/93 09/21/22 21:01 117/90 09/21/22 21:01 78 30 H 99 09/21/22 21:00 82 24 99 09/21/22 20:46 106/79 09/21/22 20:46 78 17 97 09/21/22 20:30 80 19 99 09/21/22 20:30 151/122 H 09/21/22 20:16 158/128 H 09/21/22 20:16 81 22 98 09/21/22 20:00 16 97 09/21/22 19:46 78 20 96 09/21/22 19:46 156/97 H 09/21/22 19:31 83 25 H 94 09/21/22 19:31 142/105 H 09/21/22 19:30 79 31 H 100 09/21/22 19:24 113/83 09/21/22 19:24 78 23 91 09/21/22 19:16 81 24 99 09/21/22 19:16 139/101 H 09/22/22 01:31 09/22/22 00:55 36.8 C 09/21/22 22:22 87 09/21/22 22:36 37.0 C 85 20 151/78 H 100 09/21/22 21:40 09/21/22 21:36 85 24 132/92 95 09/21/22 19:27 80 24 113/83 100 O2 Del Method O2 Del Method 09/22/22 06:30 09/22/22 06:30 09/22/22 06:26 09/22/22 06:26 09/22/22 06:20 09/22/22 06:20 09/22/22 06:15 09/22/22 06:15 09/22/22 06:10 09/22/22 06:10 09/22/22 06:05 09/22/22 06:05 09/22/22 06:00 09/22/22 06:00 09/22/22 05:55 09/22/22 05:55 09/22/22 05:51 09/22/22 05:51 09/22/22 05:50 09/22/22 05:45 09/22/22 05:45 09/22/22 05:40 09/22/22 05:40 09/22/22 05:35 09/22/22 05:35 09/22/22 05:30 09/22/22 05:25 09/22/22 05:25 09/22/22 05:20 09/22/22 05:20 09/22/22 05:15 09/22/22 05:15 09/22/22 05:10 09/22/22 05:10 09/22/22 05:05 09/22/22 05:05 09/22/22 05:00 09/22/22 05:00 09/22/22 04:56 09/22/22 04:56 09/22/22 04:55 09/22/22 04:50 09/22/22 04:50 09/22/22 04:45 09/22/22 04:45 09/22/22 04:41 09/22/22 04:41 09/22/22 04:40 09/22/22 04:35 09/22/22 04:34 09/22/22 04:34 09/22/22 04:30 09/22/22 04:25 09/22/22 04:20 09/22/22 04:20 09/22/22 04:15 09/22/22 04:10 09/22/22 04:05 09/22/22 04:00 09/22/22 04:00 09/22/22 03:55 09/22/22 03:50 09/22/22 03:45 09/22/22 03:40 09/22/22 03:35 09/22/22 03:30 09/22/22 03:25 09/22/22 03:20 09/22/22 03:15 09/22/22 03:10 09/22/22 03:05 09/22/22 03:01 09/22/22 03:01 09/22/22 03:00 09/22/22 02:55 09/22/22 02:50 09/22/22 02:45 09/22/22 02:40 09/22/22 02:35 09/22/22 02:30 09/22/22 02:00 09/22/22 01:30 09/22/22 01:01 09/22/22 01:01 09/22/22 01:00 09/22/22 00:30 09/22/22 00:00 09/21/22 23:56 09/21/22 23:56 09/21/22 23:30 09/21/22 23:00 09/21/22 22:30 09/21/22 22:22 09/21/22 21:30 09/21/22 21:30 09/21/22 21:01 09/21/22 21:01 09/21/22 21:00 09/21/22 20:46 09/21/22 20:46 09/21/22 20:30 09/21/22 20:30 09/21/22 20:16 09/21/22 20:16 09/21/22 20:00 09/21/22 19:46 09/21/22 19:46 09/21/22 19:31 09/21/22 19:31 09/21/22 19:30 09/21/22 19:24 09/21/22 19:24 09/21/22 19:16 09/21/22 19:16 09/22/22 01:31 Room Air 07/09/23 00:55 09/21/22 22:22 09/21/22 22:36 Room Air 09/21/22 21:40 Room Air 09/21/22 21:36 Room Air 09/21/22 19:27 Room Air Laboratory Results 09/22/22 04:30 09/22/22 04:30 Coding Level of Care Code 98059 SUB INP/OBS CARE 350MIN Diagnoses Closed fracture of left distal femur S72.492A Encounter type: initial encounter Fracture morphology: other fracture Acute pain R52 Diabetes mellitus, type II E11.9 Adjustment disorder F43.20 GERD (gastroesophageal reflux disease) K21.9 Asthma J45.909 (1) Closed fracture of left distal femur Encounter type: initial encounter Fracture morphology: other fracture Qualified Code(s): S72.492A - Other fracture of lower end of left femur, initial encounter for closed fracture
--- NOTE | 2022-09-22 07:55 | Hospitalist Progress Note ---
Date of Service September 22, 2022 Assessment & Plan (1) Fall: Plan: 72-year-old female with past medical history of prediabetes, moderate persistent asthma, sleep apnea, varicose veins of both legs with edema, post gastric surgery syndrome, GERD, morbid obesity, fibromyalgia, depression, presents with mechanical fall and left distal femur fracture. Patient ambulatory status okay prior to the fall. Says does not use any oxygen at home. EKG chest x-ray and labs are okay. Currently hemodynamically stable. Patient should be at acceptable risk to proceed with with surgery. Pain control IV Tylenol as needed and IV Toradol as needed. Narcotics cause hypotension. Close monitor for pain control. If needed will consult pain management. Monitor on telemetry for now. Ortho notified by ER.. Plans for Castro traction. Prediabetes On Ozempic which which will be held. Insulin sliding scale We will check HbA1c levels - pending Will monitor blood sugars. Moderate persistent asthma without complications Currently stable We will continue home inhalers. Morbid obesity Sleep apnea Will monitor respiratory status. Fibromyalgia Depression Continue home amitriptyline and duloxetine GERD Continue omeprazole Prolonged QTc of 504 To avoid QT prolonging drugs Follow repeat EKG in a.m. DVT prophylaxis Cannot place on SCDs because of femur fracture Cannot place on anticoagulation in anticipation of surgery Further anticoagulation as per orthopedics. Update: 09/22/2022 Patient was transferred to ICU overnight for pain control. Opiates cause hypotension. Pain management was consulted. Orthopedic surgery was consulted, and recommended transfer to [facility] due to complex fracture. Patient is awaiting the transfer. (2) Closed fracture of left distal femur: Admission and Anticipated Discharge Date Admission Date: September 21, 2022 Subjective Pt seen in follow up of femur fx-overnight transferred to ICU for pain control (opiates cause hypotension) Currently laying in bed, in no acute Denies any shortness of breath chest pain abdominal pain Orthopedic service consulted, and recommend transfer to [facility] due to complex fracture Review of Systems Review of Systems: All systems reviewed & are unremarkable except as noted in Subjective Physical Exam Physical Exam: General- obese eld erly F in NAD Hea d- atraumatic Ey es- PERRL ENT- or opharynx clear Elyse ngs- clear to ausc ultation b/l Hear t- regular rhythm; no murmur Abdome n- normal bowel so unds, soft, nonten néstor Extremities- mild pretibial ed kalyn, Left lower ex tremity shortened and externally rot ated -now placed i n orthopedic devic e Neuro- alert, o riented x 3; no f acial palsy; no dy sarthria, answers appropriately, mov es extremities S kin- warm & dry Results & Data Results & Data Vital Signs (Past 12 Hours) Vital Signs Temp Pulse Pulse Resp BP BP Pulse Ox 09/22/22 06:30 137 H 15 91 09/22/22 06:30 107/87 09/22/22 06:26 79 14 96 09/22/22 06:26 113/64 09/22/22 06:20 71 14 96 09/22/22 06:20 111/71 09/22/22 06:15 66 14 95 09/22/22 06:15 100/75 09/22/22 06:10 72 12 95 09/22/22 06:10 111/77 09/22/22 06:05 67 14 94 09/22/22 06:05 115/74 09/22/22 06:00 70 15 95 09/22/22 06:00 119/70 09/22/22 05:55 68 14 96 09/22/22 05:55 111/75 09/22/22 05:51 70 15 93 09/22/22 05:51 116/71 09/22/22 05:50 73 15 95 09/22/22 05:45 67 14 95 09/22/22 05:45 127/69 09/22/22 05:40 70 14 94 09/22/22 05:40 125/82 09/22/22 05:35 66 14 95 09/22/22 05:35 102/74 09/22/22 05:30 68 16 95 09/22/22 05:25 70 15 96 09/22/22 05:25 132/88 09/22/22 05:20 69 13 95 09/22/22 05:20 124/78 09/22/22 05:15 71 13 97 09/22/22 05:15 139/90 09/22/22 05:10 71 16 96 09/22/22 05:10 140/76 09/22/22 05:05 70 14 96 09/22/22 05:05 126/77 09/22/22 05:00 75 15 95 09/22/22 05:00 151/75 H 09/22/22 04:56 135/77 09/22/22 04:56 73 13 95 09/22/22 04:55 74 10 L 96 09/22/22 04:50 73 14 96 09/22/22 04:50 138/82 09/22/22 04:45 75 13 97 09/22/22 04:45 140/86 09/22/22 04:41 80 11 L 97 09/22/22 04:41 122/93 09/22/22 04:40 78 12 98 09/22/22 04:35 77 14 100 09/22/22 04:34 80 16 85 L 09/22/22 04:34 107/84 09/22/22 04:30 81 15 96 09/22/22 04:25 81 11 L 97 09/22/22 04:20 78 23 90 09/22/22 04:20 126/101 H 09/22/22 04:15 77 26 H 97 09/22/22 04:10 74 22 93 09/22/22 04:05 71 16 98 09/22/22 04:00 75 21 100 09/22/22 04:00 125/72 09/22/22 03:55 65 14 97 09/22/22 03:50 71 17 96 09/22/22 03:45 70 17 97 09/22/22 03:40 74 33 H 95 09/22/22 03:35 71 16 95 09/22/22 03:30 67 14 95 09/22/22 03:25 66 18 96 09/22/22 03:20 70 15 95 09/22/22 03:15 70 18 96 09/22/22 03:10 70 15 97 09/22/22 03:05 70 15 96 09/22/22 03:01 71 15 96 09/22/22 03:01 115/74 09/22/22 03:00 67 15 95 09/22/22 02:55 79 25 H 94 09/22/22 02:50 72 17 96 09/22/22 02:45 71 13 96 09/22/22 02:40 73 19 98 09/22/22 02:35 81 28 H 98 09/22/22 02:30 75 21 99 09/22/22 02:00 75 16 95 09/22/22 01:30 78 15 94 09/22/22 01:01 80 14 09/22/22 01:01 140/71 09/22/22 01:00 81 13 96 09/22/22 00:30 78 13 98 09/22/22 00:00 81 25 H 98 09/21/22 23:56 90 23 09/21/22 23:56 158/109 H 09/21/22 23:30 79 18 09/21/22 23:00 74 18 09/21/22 22:30 80 26 H 09/21/22 22:22 84 17 09/21/22 21:30 74 26 H 98 09/21/22 21:30 132/93 09/21/22 21:01 117/90 09/21/22 21:01 78 30 H 99 09/21/22 21:00 82 24 99 09/21/22 20:46 106/79 09/21/22 20:46 78 17 97 09/21/22 20:30 80 19 99 09/21/22 20:30 151/122 H 09/21/22 20:16 158/128 H 09/21/22 20:16 81 22 98 09/21/22 20:00 16 97 09/22/22 01:31 09/22/22 00:55 36.8 C 09/21/22 22:22 87 09/21/22 22:36 37.0 C 85 20 151/78 H 100 09/21/22 21:40 09/21/22 21:36 85 24 132/92 95 O2 Del Method O2 Del Method 09/22/22 06:30 09/22/22 06:30 09/22/22 06:26 09/22/22 06:26 09/22/22 06:20 09/22/22 06:20 09/22/22 06:15 09/22/22 06:15 09/22/22 06:10 09/22/22 06:10 09/22/22 06:05 09/22/22 06:05 09/22/22 06:00 09/22/22 06:00 09/22/22 05:55 09/22/22 05:55 09/22/22 05:51 09/22/22 05:51 09/22/22 05:50 09/22/22 05:45 09/22/22 05:45 09/22/22 05:40 09/22/22 05:40 09/22/22 05:35 09/22/22 05:35 09/22/22 05:30 09/22/22 05:25 09/22/22 05:25 09/22/22 05:20 09/22/22 05:20 09/22/22 05:15 09/22/22 05:15 09/22/22 05:10 09/22/22 05:10 09/22/22 05:05 09/22/22 05:05 09/22/22 05:00 09/22/22 05:00 09/22/22 04:56 09/22/22 04:56 09/22/22 04:55 09/22/22 04:50 09/22/22 04:50 09/22/22 04:45 09/22/22 04:45 09/22/22 04:41 09/22/22 04:41 09/22/22 04:40 09/22/22 04:35 09/22/22 04:34 09/22/22 04:34 09/22/22 04:30 09/22/22 04:25 09/22/22 04:20 09/22/22 04:20 09/22/22 04:15 09/22/22 04:10 09/22/22 04:05 09/22/22 04:00 09/22/22 04:00 09/22/22 03:55 09/22/22 03:50 09/22/22 03:45 09/22/22 03:40 09/22/22 03:35 09/22/22 03:30 09/22/22 03:25 09/22/22 03:20 09/22/22 03:15 09/22/22 03:10 09/22/22 03:05 09/22/22 03:01 09/22/22 03:01 09/22/22 03:00 09/22/22 02:55 09/22/22 02:50 09/22/22 02:45 09/22/22 02:40 09/22/22 02:35 09/22/22 02:30 09/22/22 02:00 09/22/22 01:30 09/22/22 01:01 09/22/22 01:01 09/22/22 01:00 09/22/22 00:30 09/22/22 00:00 09/21/22 23:56 09/21/22 23:56 09/21/22 23:30 09/21/22 23:00 09/21/22 22:30 09/21/22 22:22 09/21/22 21:30 09/21/22 21:30 09/21/22 21:01 09/21/22 21:01 09/21/22 21:00 09/21/22 20:46 09/21/22 20:46 09/21/22 20:30 09/21/22 20:30 09/21/22 20:16 09/21/22 20:16 09/21/22 20:00 09/22/22 01:31 Room Air 09/22/22 00:55 09/21/22 22:22 09/21/22 22:36 Room Air 09/21/22 21:40 Room Air 09/21/22 21:36 Room Air Laboratory Results 09/22/22 09/22/22 09/22/22 Range/Units 06:40 04:30 04:30 WBC 9.20 (4.8-10.8) K/ul RBC 4.27 (4.20-5.40) M/uL Hgb 11.7 L D (12.0-16.0) g/dl Hct 36.5 L (37.0-47.0) % MCV 85.5 (80.0-100.0) fL MCH 27.4 (25.0-34.0) pg MCHC 32.1 (32.0-36.0) g/dL RDW Std Deviation 44.9 (36.4-46.3) fL RDW Coeff of Umu 14.6 H (11.5-14.5) % Plt Count 197 (130-400) K/uL MPV 9.8 (9.4-12.4) fL Immature Gran % (Auto) 0.3 % Neut % (Auto) 69.6 % Lymph % (Auto) 22.2 % Tate % (Auto) 7.5 % Eos % (Auto) 0.2 % Baso % (Auto) 0.2 % Neut # (Auto) 6.40 (1.40-6.50) K/uL Lymph # (Auto) 2.04 (1.2-3.4) K/uL Tate # (Auto) 0.69 H (0.11-0.59) K/uL Eos # (Auto) 0.02 (0-0.50) K/uL Baso # (Auto) 0.02 (0-0.2) K/uL Immature Gran # (Auto) 0.03 (0.01-0.20) K/uL PT (9.0-12.0) Seconds INR (0.9-1.1) APTT (21.0-31.0) Seconds PTT Ratio Sodium (136-145) mmol/L Potassium (3.5-5.1) mmol/L Chloride (98-107) mmol/L Carbon Dioxide (21-32) mmol/L Anion Gap (3-11) BUN (6-23) mg/dl Creatinine (0.6-1.2) mg/dl Est Cr Clr Drug Dosing ml/min Est GFR ( Amer) ml/min Est GFR (Non-Af Amer) ml/min BUN/Creatinine Ratio (10-20) Glucose (70-99(Fasting)) mg/dl POC Glucose 101 H (70-99) mg/dl Estimat Average Glucose Hemoglobin A1c Calcium (8.6-10.3) mg/dl Ionized Calcium 1.07 L (1.12-1.32) mmol/L Magnesium (1.7-2.4) mg/dl Total Bilirubin (0.2-1.0) mg/dl AST (13-39) U/L ALT (7-52) U/L Alkaline Phosphatase (34-104) U/L Total Protein (6.0-8.3) gm/dl Albumin (3.4-5.0) gm/dl Globulin (2.5-4.0) gm/dl Albumin/Globulin Ratio (0.9-2) SARS-CoV-2, RNA, NAAT (NEGATIVE) Blood Type Antibody Screen 09/22/22 09/22/22 09/22/22 Range/Units 04:30 04:30 00:11 WBC (4.8-10.8) K/ul RBC (4.20-5.40) M/uL Hgb (12.0-16.0) g/dl Hct (37.0-47.0) % MCV (80.0-100.0) fL MCH (25.0-34.0) pg MCHC (32.0-36.0) g/dL RDW Std Deviation (36.4-46.3) fL RDW Coeff of Umu (11.5-14.5) % Plt Count (130-400) K/uL MPV (9.4-12.4) fL Immature Gran % (Auto) % Neut % (Auto) % Lymph % (Auto) % Tate % (Auto) % Eos % (Auto) % Baso % (Auto) % Neut # (Auto) (1.40-6.50) K/uL Lymph # (Auto) (1.2-3.4) K/uL Tate # (Auto) (0.11-0.59) K/uL Eos # (Auto) (0-0.50) K/uL Baso # (Auto) (0-0.2) K/uL Immature Gran # (Auto) (0.01-0.20) K/uL PT (9.0-12.0) Seconds INR (0.9-1.1) APTT (21.0-31.0) Seconds PTT Ratio Sodium 137 (136-145) mmol/L Potassium 4.0 (3.5-5.1) mmol/L Chloride 108 H (98-107) mmol/L Carbon Dioxide 20 L (21-32) mmol/L Anion Gap 9 (3-11) BUN 13 (6-23) mg/dl Creatinine 0.65 (0.6-1.2) mg/dl Est Cr Clr Drug Dosing 107.4 ml/min Est GFR ( Amer) 103.5 ml/min Est GFR (Non-Af Amer) 89.3 ml/min BUN/Creatinine Ratio 20.0 (10-20) Glucose 113 H (70-99(Fasting)) mg/dl POC Glucose 195 H (70-99) mg/dl Estimat Average Glucose Pending Hemoglobin A1c Pending Calcium 8.0 L (8.6-10.3) mg/dl Ionized Calcium (1.12-1.32) mmol/L Magnesium 2.0 (1.7-2.4) mg/dl Total Bilirubin (0.2-1.0) mg/dl AST (13-39) U/L ALT (7-52) U/L Alkaline Phosphatase (34-104) U/L Total Protein (6.0-8.3) gm/dl Albumin (3.4-5.0) gm/dl Globulin (2.5-4.0) gm/dl Albumin/Globulin Ratio (0.9-2) SARS-CoV-2, RNA, NAAT (NEGATIVE) Blood Type Antibody Screen 09/21/22 09/21/22 09/21/22 Range/Units 19:10 17:48 17:48 WBC (4.8-10.8) K/ul RBC (4.20-5.40) M/uL Hgb (12.0-16.0) g/dl Hct (37.0-47.0) % MCV (80.0-100.0) fL MCH (25.0-34.0) pg MCHC (32.0-36.0) g/dL RDW Std Deviation (36.4-46.3) fL RDW Coeff of Umu (11.5-14.5) % Plt Count (130-400) K/uL MPV (9.4-12.4) fL Immature Gran % (Auto) % Neut % (Auto) % Lymph % (Auto) % Tate % (Auto) % Eos % (Auto) % Baso % (Auto) % Neut # (Auto) (1.40-6.50) K/uL Lymph # (Auto) (1.2-3.4) K/uL Tate # (Auto) (0.11-0.59) K/uL Eos # (Auto) (0-0.50) K/uL Baso # (Auto) (0-0.2) K/uL Immature Gran # (Auto) (0.01-0.20) K/uL PT 10.3 (9.0-12.0) Seconds INR 0.9 (0.9-1.1) APTT 24.5 (21.0-31.0) Seconds PTT Ratio 0.9 Sodium 138 (136-145) mmol/L Potassium 3.8 (3.5-5.1) mmol/L Chloride 104 (98-107) mmol/L Carbon Dioxide 21 (21-32) mmol/L Anion Gap 13 H (3-11) BUN 20 (6-23) mg/dl Creatinine 0.90 (0.6-1.2) mg/dl Est Cr Clr Drug Dosing 82.2 ml/min Est GFR ( Amer) 74.6 ml/min Est GFR (Non-Af Amer) 64.3 ml/min BUN/Creatinine Ratio 22.2 H (10-20) Glucose 142 H (70-99(Fasting)) mg/dl POC Glucose (70-99) mg/dl Estimat Average Glucose Hemoglobin A1c Calcium 9.5 (8.6-10.3) mg/dl Ionized Calcium (1.12-1.32) mmol/L Magnesium (1.7-2.4) mg/dl Total Bilirubin 0.4 (0.2-1.0) mg/dl AST 19 (13-39) U/L ALT 14 (7-52) U/L Alkaline Phosphatase 82 (34-104) U/L Total Protein 7.2 (6.0-8.3) gm/dl Albumin 4.1 (3.4-5.0) gm/dl Globulin 3.1 (2.5-4.0) gm/dl Albumin/Globulin Ratio 1.3 (0.9-2) SARS-CoV-2, RNA, NAAT NEGATIVE (NEGATIVE) Blood Type Antibody Screen 09/21/22 09/21/22 Range/Units 17:48 17:48 WBC 10.48 (4.8-10.8) K/ul RBC 5.39 (4.20-5.40) M/uL Hgb 14.9 (12.0-16.0) g/dl Hct 44.5 (37.0-47.0) % MCV 82.6 (80.0-100.0) fL MCH 27.6 (25.0-34.0) pg MCHC 33.5 (32.0-36.0) g/dL RDW Std Deviation 44.3 (36.4-46.3) fL RDW Coeff of Umu 14.6 H (11.5-14.5) % Plt Count 258 (130-400) K/uL MPV 9.7 (9.4-12.4) fL Immature Gran % (Auto) 0.5 % Neut % (Auto) 67.0 % Lymph % (Auto) 25.2 % Tate % (Auto) 5.4 % Eos % (Auto) 1.4 % Baso % (Auto) 0.5 % Neut # (Auto) 7.02 H (1.40-6.50) K/uL Lymph # (Auto) 2.64 (1.2-3.4) K/uL Tate # (Auto) 0.57 (0.11-0.59) K/uL Eos # (Auto) 0.15 (0-0.50) K/uL Baso # (Auto) 0.05 (0-0.2) K/uL Immature Gran # (Auto) 0.05 (0.01-0.20) K/uL PT (9.0-12.0) Seconds INR (0.9-1.1) APTT (21.0-31.0) Seconds PTT Ratio Sodium (136-145) mmol/L Potassium (3.5-5.1) mmol/L Chloride (98-107) mmol/L Carbon Dioxide (21-32) mmol/L Anion Gap (3-11) BUN (6-23) mg/dl Creatinine (0.6-1.2) mg/dl Est Cr Clr Drug Dosing ml/min Est GFR ( Amer) ml/min Est GFR (Non-Af Amer) ml/min BUN/Creatinine Ratio (10-20) Glucose (70-99(Fasting)) mg/dl POC Glucose (70-99) mg/dl Estimat Average Glucose Hemoglobin A1c Calcium (8.6-10.3) mg/dl Ionized Calcium (1.12-1.32) mmol/L Magnesium (1.7-2.4) mg/dl Total Bilirubin (0.2-1.0) mg/dl AST (13-39) U/L ALT (7-52) U/L Alkaline Phosphatase (34-104) U/L Total Protein (6.0-8.3) gm/dl Albumin (3.4-5.0) gm/dl Globulin (2.5-4.0) gm/dl Albumin/Globulin Ratio (0.9-2) SARS-CoV-2, RNA, NAAT (NEGATIVE) Blood Type A Positive Antibody Screen NEGATIVE Medications Administered Current Inpatient Medications Albuterol (Albuterol Hfa 8 Gm Inhaler) 2 puffs INH Q4H PRN PRN Reason: Wheezing Stop: 10/21/22 22:37 Amitriptyline HCl (Amitriptyline Hcl 50 Mg Tab) 50 mg PO HS ELAINE Stop: 10/21/22 22:37 Last Admin: 09/22/22 00:19 Dose: 50 mg Budesonide (Budesonide 0.5 Mg/2 Ml Vial (Pulmicort)) 1 mg INH DAILY PRN PRN Reason: NEEDED RESPIRATORY ILLNESS Stop: 10/21/22 22:37 Calcium/Vitamin D (Calcium 600mg + Vit D 400 Iu Tab) 1 tab PO DAILY ELAINE Stop: 10/22/22 08:59 Cyanocobalamin (Cyanocobalamin (B-12) 500 Mcg Tablet) 1,000 mcg PO DAILY ELAINE Stop: 10/22/22 08:59 Dextrose (Dextrose 50% 50 Ml Syringe) 25 - 50 ml IV UD PRN; Protocol PRN Reason: Hypoglycemia Protocol Stop: 10/21/22 22:37 Diazepam (Diazepam 5 Mg/Ml Inj 10ml Vial) 2.5 mg IV ONE PRN PRN Reason: muscle spasm Duloxetine HCl (Duloxetine Hcl 60 Mg Cap) 60 mg PO DAILY ELAINE Stop: 10/22/22 08:59 Famotidine (Famotidine 20 Mg Tab) 20 mg PO HS ELAINE Stop: 10/21/22 22:37 Last Admin: 09/22/22 00:19 Dose: 20 mg Fluticasone Furoate (Fluticasone Furoate 200mcg 14 Puffs/Inhaler) 1 puffs INH DAILY ELAINE Stop: 10/22/22 08:59 Fluticasone Propionate (Fluticasone Propionate Na Spr 16 Gm Btl) 2 sprays NA DAILY PRN PRN Reason: Congestion Stop: 10/21/22 22:37 Glucagon (Glucagon For Inj 1 Mg Vial) 1 mg SQ UD PRN; Protocol PRN Reason: Hypoglycemia Protocol Stop: 10/21/22 22:37 Glucose (Glucose 10 Tab/Tube) 4 - 8 tab PO UD PRN; Protocol PRN Reason: Hypoglycemia Treatment Stop: 10/21/22 22:37 Glucose (Glucose 40% Gel 15 Gm Tube) 15 - 30 gm PO UD PRN; Protocol PRN Reason: Hypoglycemia Protocol Stop: 10/21/22 22:37 Sodium Chloride (Nss 1000ml) 1,000 mls @ 80 mls/hr IV .[id number] ELAINE Stop: 10/21/22 22:37 Last Admin: 09/21/22 23:16 Dose: 80 mls/hr Acetaminophen (Ofirmev) 1,000 mg in 100 mls @ 400 mls/hr IV Q8H PRN PRN Reason: Pain Stop: 09/24/22 22:37 Last Infusion: 09/22/22 03:00 Dose: Infused Insulin Aspart (Insulin Aspart Per Unit Charge) 0 units SC Q6 ELAINE Stop: 10/22/22 00:00 Last Admin: 09/22/22 06:43 Dose: Not Given Ketorolac Tromethamine (Ketorolac Tromethamine 15 Mg/Ml Vial) 15 mg IV Q6H PRN PRN Reason: Severe Pain (Scale 7, 8, 9,10) Stop: 09/26/22 22:37 Miscellaneous (Carbohydrates For Hypoglycemia ) 15 - 30 gm PO UD PRN PRN Reason: Hypoglycemia Protocol Stop: 10/21/22 22:37 Multivitamins/Minerals (Cerovite Adv Formula Tab) 1 tab PO DAILY ELAINE Stop: 10/22/22 08:59 Nitroglycerin (Nitroglycerin Sl 0.4 Mg/Tab Tab) 0.4 mg SL Q5M PRN PRN Reason: Chest Pain Stop: 10/21/22 22:37 Pantoprazole Sodium (Pantoprazole 40 Mg Tab) 40 mg PO QAM [facility] Stop: 10/22/22 08:59 (1) Fall Encounter type: initial encounter Qualified Code(s): W19.XXXA - Unspecified fall, initial encounter (2) Closed fracture of left distal femur Encounter type: initial encounter Fracture morphology: other fracture Qualified Code(s): S72.492A - Other fracture of lower end of left femur, initial encounter for closed fracture
[2022-09-22] MEDS ORDERED: CEROVITE ADV FORMULA TAB PO SCH (09:00)
[2022-09-22] MEDS ORDERED: CYANOCOBALAMIN (B-12) 500 MCG TABLET PO SCH (09:00)
[2022-09-22] MEDS ORDERED: FLUTICASONE FUROATE 200MCG 14 PUFFS/INHALER INH SCH (09:00)
[2022-09-22] MEDS ORDERED: DULoxetine HCL 60 MG CAP PO SCH (09:00)
[2022-09-22] MEDS ORDERED: NON-FORMULARY MEDICATION (Magnesium Citrate 100 mg Capsule) PO SCH (09:00)
[2022-09-22] MEDS ORDERED: NON-FORMULARY MEDICATION (Potassium Citrate 99 mg Capsule) PO SCH (09:00)
[2022-09-22] MEDS ORDERED: CALCIUM 600MG + VIT D 400 IU TAB PO SCH (09:00)
[2022-09-22] MEDS ORDERED: PANTOprazole 40 MG TAB PO SCH (09:00)
--- NOTE | 2022-09-22 09:40 | Discharge Summary ---
Date of Service September 22, 2022 Admission HPI Per Admitting Provider This is a 72-year-old female with past medical history significant for prediabetes moderate persistent asthma, sleep apnea, varicose veins of both legs with edema, post gastric surgery syndrome, GERD, morbid obesity, female stress incontinence, fibromyalgia, osteoarthritis of knees, age-related osteoporosis, adjustment disorder with depressed mood comes from home with fall. Patient's family member fell back on the patient's legs which which made patient fall down. Patient's family in the room. As per family and the patient,she did not hit her head and did not lose consciousness. Have a lot of pain in the left lower extremity and back. Imaging studies in the ER showed distal left femur fracture. Patient is allergic to narcotics which cause hypotension. After recent couple of dose of fentanyl in the ER patient blood pressure dropped but improved with fluids. Currently patient received IV Tylenol and IV Toradol for pain control. Still has some pain. Has some nausea. Denies any headaches, no blurred vision, no runny nose, no cough, no recent fevers, no chest pain or shortness of breath. No abdominal pain. Normal bowel and bladder movements. Hemodynamically stable. Past medical history as mentioned above. Past surgical history left knee replacement, right knee total arthroplasty, right breast lesion excision which was benign, colonoscopy, EGD, incision of tendon sheath, left rotator cuff surgery, right knee arthroscopy, laparoscopic procedure of liver, laparoscopic cholecystectomy, tonsillectomy and adenoidectomy, sleeve gastrectomy laparoscopic, left knee surgery for torn cartilage. Admission Exam Per Admitting Provider General- adult Head- atraumatic Eyes- PERRL, ENT- oropharynx clear no adenopathy, no thyromegaly; carotids +2/2, no bruits appreciated Lungs- clear to auscultation and percussion Heart- regular rhythm; no murmur, no gallop, no rub appreciated Abdomen- normal bowel sounds, soft, nontender, no masses or hepatosplenomegaly Extremities- mild pretibial edema, Left lower extremity shortened and externally rotated Neuro- alert, oriented x 3; no facial palsy; no dysarthria;insight ok, obeys commands Skin- warm & dry Principal Diagnosis Periprosthetic fracture of left distal femur Discharge Exam General- obese elderly F in NAD Head- atraumatic Eyes- PERRL ENT- oropharynx clear Lungs- clear to auscultation b/l Heart- regular rhythm; no murmur Abdomen- normal bowel sounds, soft, nontender Extremities- mild pretibial edema, Left lower extremity shortened and externally rotated -now placed in orthopedic device Neuro- alert, oriented x 3; no facial palsy; no dysarthria, answers appropriately, moves extremities Skin- warm & dry Discharge Data Allergies Allergy/AdvReac Type Severity Reaction Status Date / Time hydrocodone Allergy Severe HYPOTENSION Verified 09/21/22 18:21 /SHOCK oxycodone Allergy Severe HYPOTENSION Verified 09/21/22 18:21 /SHOCK Sulfa (Sulfonamide Allergy Severe HIVES IN Verified 09/21/22 18:21 Antibiotics) THROAT, EDEMA OF AIRWAY. adhesive tape Allergy Intermediate SKIN Verified 09/21/22 18:21 TEARS/REDDENED tetanus toxoid, adsorbed Allergy Intermediate RASH/FEVER Verified 09/21/22 18:21 tramadol AdvReac Severe BP DROPPED Verified 09/21/22 18:22 SEVERELY Consultations 09/21/22 19:37 ED Decision to Admit Stat 09/22/22 00:05 Consult Airflight Attendants Supervisor Routine 09/22/22 08:00 Consult Orthopedic Surgery Routine Consult Pain Management Routine Procedures Performed Operation Date: 09/22/22 11:00 <No data on this case meets the specified criteria> Hospital Course (1) Fall: 72-year-old female with past medical history of prediabetes, moderate persistent asthma, sleep apnea, varicose veins of both legs with edema, post gastric surgery syndrome, GERD, morbid obesity, fibromyalgia, depression, presents with mechanical fall and left distal femur fracture. Patient ambulatory status okay prior to the fall. Says does not use any oxygen at home. EKG chest x-ray and labs are okay. Currently hemodynamically stable. Patient should be at acceptable risk to proceed with with surgery. Pain control IV Tylenol as needed and IV Toradol as needed. Narcotics cause hypotension. Close monitor for pain control. If needed will consult pain management. Monitor on telemetry for now. Ortho notified by ER.. Plans for Castro traction. Prediabetes On Ozempic which which will be held. Insulin sliding scale We will check HbA1c levels - pending Will monitor blood sugars. Moderate persistent asthma without complications Currently stable We will continue home inhalers. Morbid obesity Sleep apnea Will monitor respiratory status. Fibromyalgia Depression Continue home amitriptyline and duloxetine GERD Continue omeprazole Prolonged QTc of 504 To avoid QT prolonging drugs Follow repeat EKG in a.m. DVT prophylaxis Cannot place on SCDs because of femur fracture Cannot place on anticoagulation in anticipation of surgery Further anticoagulation as per orthopedics. Update: 09/22/2022 Patient was transferred to ICU overnight for pain control. Opiates cause hypotension. Pain management was consulted. Orthopedic surgery was consulted, and recommended transfer to [facility] due to complex fracture. Patient is awaiting the transfer. (2) Closed fracture of left distal femur: Total Time Total Time Spent Total Time Spent (In Minutes): 40 Discharge Plan Discharge Items Patient Disposition: Transfer Acute Care Hospital Reason For Visit: FALL, LEFT FEMUR FRACTURE Discharge Diagnosis: Periprosthetic fracture of left distal femur Activity: Per Instructions section Non-emergency contact: Surgeon and Specialist Call non-emergency contact if: you have any medication questions and your symptoms worsen Follow-up/Referrals: Evie Lowery DO [Primary Care Provider] - Diet: Other - See Diet Comment Diet Comment: NPO except for meds Addtl Attending Provider Instructions: Patient presented with periprosthetic fracture of left distal femur, due to the complex fracture patient will be transferred to [facility] orthopedics care for surgical repair. Pending Studies at Discharge: No Stand-Alone Forms: [facility], [facility] Skilled Items Patient informed of condition?: Yes DNR: No Discharge Level of Care: Other Communicable Disease: No Discharge Prognosis: Other Lines: Peripheral IV Urinary Catheter: Yes Medications and DC Order Prescriptions: Continued valacyclovir 1 gram Tablet 1,000 mg PO Q12H PRN (Reason: Cold Sores) cyanocobalamin (vitamin B-12) [Vitamin B-12] 1,000 mcg Tablet 1,000 mcg PO DAILY omeprazole 40 mg Capsule,Delayed Release(Dr/Ec) 40 mg PO QAM amitriptyline 50 mg Tablet 50 mg PO HS famotidine 20 mg Tablet 20 mg PO HS multivitamin with minerals Tablet 1 tab PO DAILY albuterol sulfate 90 mcg/actuation Hfa Aerosol Inhaler 2 puff INHALATION Q4H PRN (Reason: Wheezing) hydrocortisone 2.5 % Ointment 1 applic TOPICAL DIRECTED PRN (Reason: NEEDED) fluticasone propionate [Flonase] 50 mcg/actuation [place],Suspension 2 spray INTRANASAL DAILY PRN (Reason: Congestion) Rx Instructions: administer into each nostril fluticasone propionate [Flovent HFA] 110 mcg/actuation Hfa Aerosol Inhaler 2 puff INHALATION BID duloxetine 60 mg Capsule,Delayed Release(Dr/Ec) 60 mg PO DAILY calcium carbonate-vitamin D3 [Calcium 500 + D (D3)] 500 mg-3.125 mcg (125 unit) Tablet 1 tab PO DAILY budesonide [Pulmicort] 1 mg/2 mL Suspension For Nebulization 1 mg INHALATION DAILY PRN (Reason: NEEDED RESPIRATORY ILLNESS) magnesium citrate 100 mg Capsule 100 mg PO QAM potassium citrate 99 mg Capsule 99 mg PO QAM Ozempic 0.25 mg or 0.5 mg (2 mg/3 mL) Pen Injector 0.5 mg SUBCUT WK Discharge Orders: Discharge Order (Routine); Ordered 09/22/22 Ordered By: Barrie Christianson Admission Data Admit Date/Time: 09/21/22 20:48 Attending Provider: Barrie Christianson Admit Provider: Kishore Espitia Primary Care Provider: Evie Lowery Other Providers: Kishore Espitia ; Lilia Dawson ; Kwesi Seay ; Jennifer Beaulieu
[2022-09-22] MEDS ORDERED: ROPIVACAINE 0.5% 5 MG/ML 30 ML VIAL ONE (10:04)
--- NOTE | 2022-09-22 10:12 | Anesthesia Procedure Note ---
Anesthesia Procedure Note Peripheral Nerve Block Note Date of procedure: 09/22/22 Indication: Postoperative pain contol Consent: Risk / Benefits Reviewed With: PT / POA / Parent / Guardian, Accepts Plan, Informed Consent Obtained and All Questions Answered Monitors attached: Blood Pressure, EKG and Pulse Oximetry Oxygen delivery method: Nasal cannula Time out completed: Yes Premedication: None Laterality: Left Position: Supine Equipment/Supplies: Sterile gloves, Sterile drapes and Sterile procedures used Skin prep: Chloraprep Local medication: 1% Lidocaine (ml) Block: Adductor canal Needle: 22g x 3.5 inch Ultra-jannette Ultrasound used: Yes US equipment and supplies: Sterile Gel and Sterile Probe Cover Anesthetic: 0.5% Ropivicaine (ml) (25cc) Additives: None Attempts: 1 Post-procedure: Pt hemodynamically stable, Pt tolerates well and No complications
[2022-09-22] MEDS ORDERED: LIDOCAINE 2% 2 ML VIAL/AMP(20MG/ML) INFIL ONE (10:29)
--- NOTE | 2022-09-22 10:35 | Communication Note ---
Date of Service: September 22, 2022 Pt admitted with left distal femur fracture. Pending transfer to [place] for further treatment. Pt has reportedly had hypotension when given pain meds. Surge on asked for consultation for consideration of nerve block to provide anlagesia while waiting for definitive treatment. I reviewed EMR and discussed w/ pt. Offered pt adductor canal block. She consen jimmie. Block performed in ICU, tolerated well. See also Procedure Note.
[2022-09-22] MEDS: SODIUM CHLORIDE 0.9% 1000ML 1,000 ML IV SCH (12:26)
[2022-09-22] MEDS ORDERED: KETAMINE HCL 10 MG in SODIUM CHLORIDE 0.9% 50 ML IV ONE (12:45)
[2022-09-23 07:56] LABS: Estimated Average Glucose 128 mg/dl; Hemoglobin A1C 6.1 % (4.5-5.6)
--- NOTE | 2022-09-23 08:38 | Pain Management Consultation ---
Date of Consultation September 23, 2022 Assessment & Plan (1) Acute pain: Plan pt left prior to being seen History of Present Illness Attending Physician: Barrie Christianson MD Allergies Allergy/AdvReac Type Severity Reaction Status Date / Time hydrocodone Allergy Severe HYPOTENSION Verified 09/21/22 18:21 /SHOCK oxycodone Allergy Severe HYPOTENSION Verified 09/21/22 18:21 /SHOCK Sulfa (Sulfonamide Allergy Severe HIVES IN Verified 09/21/22 18:21 Antibiotics) THROAT, EDEMA OF AIRWAY. adhesive tape Allergy Intermediate SKIN Verified 09/21/22 18:21 TEARS/REDDENED tetanus toxoid, adsorbed Allergy Intermediate RASH/FEVER Verified 09/21/22 18:21 tramadol AdvReac Severe BP DROPPED Verified 09/21/22 18:22 SEVERELY Home Medications Medication Instructions Recorded Confirmed Type albuterol sulfate 90 mcg/actuation 2 puff inhalation Q4H PRN Wheezing 09/21/22 09/21/22 History aerosol inhaler amitriptyline 50 mg tablet 50 mg PO HS 09/21/22 09/21/22 History budesonide 1 mg/2 mL suspension 1 mg inhalation DAILY PRN 09/21/22 09/21/22 History for nebulization (Pulmicort) NEEDED RESPIRATORY ILLNESS calcium carbonate 500 mg-vitamin 1 tab PO DAILY 09/21/22 09/21/22 History D3 3.125 mcg (125 unit) tablet cyanocobalamin (vitamin B-12) 1,000 mcg PO DAILY 09/21/22 09/21/22 History 1,000 mcg tablet (Vitamin B-12) duloxetine 60 mg capsule,delayed 60 mg PO DAILY 09/21/22 09/21/22 History release famotidine 20 mg tablet 20 mg PO HS 09/21/22 09/21/22 History fluticasone propionate 110 2 puff inhalation BID 09/21/22 09/21/22 History mcg/actuation HFA aerosol inhaler (Flovent HFA) fluticasone propionate 50 2 spray intranasal DAILY PRN 09/21/22 09/21/22 History mcg/actuation nasal Congestion spray,suspension hydrocortisone 2.5 % topical 1 applic topical DIRECTED PRN 09/21/22 09/21/22 History ointment NEEDED magnesium citrate 100 mg capsule 100 mg PO QAM 09/21/22 09/21/22 History multivitamin with minerals 1 tab PO DAILY 09/21/22 09/21/22 History omeprazole 40 mg capsule,delayed 40 mg PO QAM 09/21/22 09/21/22 History release potassium citrate 99 mg capsule 99 mg PO QAM 09/21/22 09/21/22 History semaglutide 0.25 mg or 0.5 mg (2 0.5 mg subcut WK 09/21/22 09/21/22 History mg/3 mL) subcutaneous pen injector (Ozempic) valacyclovir 1 gram tablet 1,000 mg PO Q12H PRN Cold Sores 09/21/22 09/21/22 History Patient History Medical History Adjustment disorder Asthma Diabetes mellitus, type II GERD (gastroesophageal reflux disease) Obesity (BMI 30-39.9) Osteoarthritis Surgical History H/O gastric bypass H/O total knee replacement Family History Grandmother (Maternal) Breast cancer Aunt Ovarian cancer Mother Deep vein thrombosis Diabetes Father Leukemia Son Brain tumor Grandfather (Paternal) Myocardial infarction Daughter Multiple sclerosis Social History Smoking Status: Never smoker Hx Alcohol Use: No Hx Substance Use: No Preferred Language: Maltese Sales Operations Director Required: No Beliefs That Will Affect Care: None Current Living Situation: Spouse Current Living Situation Comment: Lives at home with Feels Safe at Home: Yes
== END 2022-09-22 14:04 | disposition short-term general hospital (02) | DRG 561 ==
LOC: ED 17:12 → 2S 20:48 → SUATTDRO 20:48 → 1E 21:40